=== PATIENT | female | born 1950 | race Caucasian/White ===

== ENCOUNTER 2019-01-04 22:51 | Inpatient (IN) | payer MEDICARE, MEDICAID ==
[2019-01-03 23:03] VITALS: BP 178/78
[~2019-01-04] VITALS: Ht 160 cm; Wt 65.8 kg
[~2019-01-04 22:51] MED LIST: FOLI1TAB16 PO; FURO20TA4 PO; HYDR25TA4 PO; LORA-259 PO; NICO-677 TD; OSEL75CA PO; POTA10CA43 PO; THIA100T13 PO
--- NOTE | 2019-01-04 23:03 | NUR ---
AIR POLLUTION INSPECTOR ADMISSION NOTES RECEIVED PATIENT AD DIRECT ADMIT FROM NAZLINI. PATIENT IS ALERT AND ORIENTED X3, VERBALLY RESPONSIVE, ABLE TO MAKE NEEDS KNOWN. BREATHING EVEN AND UNLABORED. NO SOB NOTED. TOLERATING ROOM AIR. WITH COMPLAINTS OF PAIN ON LEFT HIP. WILL GIVE PRN PAIN MEDICATION WHEN AVAILABLE. SKIN DRY AND WARM TO TOUCH. AFEBRILE. PATIENT REFUSED TO TURNED TO RIGHT SIDE FOR SKIN ASSESSMENT OF BACK/BUTTOCKS/SACRUM DUE TO PAIN. ALSO UNABLE TO FULLY ASSESS [place] AREA DUE TO PATIENT NOT BEING ABLE TO SPREAD LEGS DUE TO PAIN. PATIENT HAS MARTIN CATH- INTACT AND DRAINING DARK ORANGE URINE - DR. LOPEZ AWARE WITH NO ORDERS. IV ON RIGHT FA AND LEFT FA INTACT AND PATENT. ALL OTHER NEEDS ATTENDED TO. ORIENTED TO THE USE OF UNIT AMENITIES. SAFETY MEASURES IN PLACE. CALL LIGHT WITHIN REACH. WILL CONTINUE TO MONITOR. .
[2019-01-04] MEDS ORDERED: ACETAMINOPHEN 650 MG/SUPP.RECT RC PRN (23:30)
[2019-01-04] MEDS ORDERED: ENALAPRILAT DIHYD. (2.5MG/ML) 1.25 MG/ML VIAL IV PRN (23:30)
[2019-01-04] MEDS ORDERED: Potassium Chloride 20 MEQ in IV D5/0.45 NACL 1,000 ML IV PRN (23:30)
[2019-01-04] MEDS ORDERED: HYDROMORPHONE INJ 2 MG/ML DISP.SYRIN IV PRN (23:30)
[2019-01-04] MEDS ORDERED: ONDANSETRON HCL/PF 4 MG/2 ML VIAL IVP PRN (23:30)
[2019-01-05] VITALS (7 sets, daily range): BP systolic 140–189; BP diastolic 67–98
--- NOTE | 2019-01-05 00:49 | NUR ---
VOICER NOTES DR. LOPEZ IN UNIT, SAW PATIENT WITH ORDERS TO GIVE ANOTHER DILAUDID 1MG IV NOW AND TO CHANGE DOSE OF PRN DILAUDID 1MG IV TO DILAUDID 2MG IV Q3H. ORDERS NOTED AND CARRIED OUT. WILL CONTINUE TO MONITOR.
[2019-01-05] MEDS ORDERED: HYDROMORPHONE 1 MG/1 ML DISP.SYRIN IV PRN (00:50)
[2019-01-05] MEDS ORDERED: ENALAPRILAT INJ (1.25 MG/ML) 1.25 MG/ML VIAL IV PRN (01:45)
--- NOTE | 2019-01-05 01:49 | NUR ---
PASSENGER AGENT NOTES PATIENT'S CURRENT BP IS 177/79 WITH HR OF 80. PATIENT HAS ORDER FOR VASOTEC 2.5MG FOR SBP >150. PER CARDIAC MEDS PROTOCOL, IT IS OK TO GIVE THIS MEDICATION IF PATIENT'S WAS PREVIOUSLY ON IT. INFORMED DR. LOPEZ REGARDING THE CARDIAC PROTOCOL. PER DR. LOPEZ, OK TO GIVE MEDICATION. CHARGE NURSE MADE AWARE. WILL CONTINUE TO MONITOR.
[2019-01-05] MEDS ORDERED: IV PREMIX D5 1/2NS + KCL 1,000 ML IV ONE (02:26)
[2019-01-05] MEDS: LORAZEPAM INJ 2 MG/ML VIAL IV PRN ×2 (03:08→10:13)
--- NOTE | 2019-01-05 03:58 | NUR ---
PRIVACY OFFICER NOTES INFORMED DR. LOPEZ THAT PATIENT'S BP IS 189/93 AND HR IS 105 DESPITE ATIVAN, DILAUDID, AND VASOTEC. PER DR. LOPEZ, STAT DOSE OF DILAUDID 2MG IV NOW AND NITROPASTE 1MG TO CHEST WALL Q6H PRN FOR SBP ABOVE 160. ORDERS NOTED AND CARRIED OUT.
[2019-01-05] MEDS: HYDROMORPHONE INJ 2 MG/ML DISP.SYRIN IV PRN ×3 (04:27→17:09)
[2019-01-05] MEDS ORDERED: NITROGLYCERIN PACKET 1 GM PACKET TOP PRN (04:40)
[2019-01-05 06:32] LABS: BASOPHILS % (AUTO) 0.3 % (0.0-2.0); EOSINOPHILS % (AUTO) 0.2 % (0.0-6.0); HEMATOCRIT 26 % (33-45); HEMOGLOBIN 8.3 g/dL (11.5-14.8); LYMPHOCYTES # (AUTO) 0.9 /CMM (0.8-4.8); LYMPHOCYTES % (AUTO) 8.9 % (20.0-44.0); MEAN CORPUSCULAR HGB CONC 32 g/dl (31.0-36.0); MEAN CORPUSCULAR VOLUME 79 fL (82-100); MONOCYTES # (AUTO) 0.6 /CMM (0.1-1.30); MONOCYTES % (AUTO) 5.5 % (2.0-12.0); NEUTROPHILS # (AUTO) 8.5 /CMM (1.8-8.9); NEUTROPHILS % (AUTO) 85.1 % (43.0-81.0); PLATELET COUNT (AUTO) 198 /CMM (150-450)
--- NOTE | 2019-01-05 06:35 | NUR ---
BORING MILL OPERATOR FOR METAL NOTES INFORMED DR. LOPEZ THAT PATIENT'S BLOOD PRESSURE IS 171/98 WITH HR 103 DESPITE NITRO OINTMENT GIVEN. DR. LOPEZ GAVE THE FOLLOWING ORDERS: CLONIDINE PATCH 0.1MG TOPICALLY Q7DAYS. ORDER NOTED AND CARRIED OUT. Addendum: 01/05/19 at 0637 by ADELA PALAFOX RN WILL CONTINUE TO MONITOR.
[2019-01-05] MEDS: CLONIDINE HCL 0.1MG/24H PTWK 1 EA PATCH TD SCH (06:43)
--- NOTE | 2019-01-05 06:51 | NUR ---
HOME ENERGY INSPECTOR CLOSING NOTES PATIENT RESTING IN BED. STILL IN PAIN DESPITE PAIN MEDICATIONS. DR. LOPEZ AWARE. CONTINUE CURRENT PRN PAIN MEDICATION. BREATHING EVEN AND UNLABORED. NO SOB NOTED. TOLERATING ROOM AIR. PATIENT WILL HAVE 02SAT BETWEEN 89-91% ON ROOM AIR, BUT REFUSES TO HAVE OXYGEN ON (PATIENT HAS HISTORY OF COPD). IV INTACT AND PATENT WITH D5 1/2 NS WITH 20 MEQ KCL RUNNING AT 70ML/HR. SKIN DRY AND WARM TO TOUCH. AFEBRILE. MARTIN CATH INTACT AND DRAINING DARK ORANGE/ BLOOD TINGED URINE. DR. LOPEZ AWARE. ALL OTHER NEEDS ATTENDED TO. SAFETY MEASURES IN PLACE. CALL LIGHT WITHIN REACH. WILL ENDORSE TO ONCOMING NURSE FOR ELIZABETH.
[2019-01-05 06:52] LABS: ALANINE AMINOTRANSFERASE 16 U/L (12-78); ALBUMIN 3.3 g/dL (3.4-5.0); ALKALINE PHOSPHATASE 124 U/L (46-116); ASPARTATE AMINOTRANSFERASE 21 U/L (15-37); B-TYPE NATRIURETIC PEPTIDE 17360 PG/ML (0-125); BILIRUBIN,TOTAL 0.7 mg/dL (0.2-1.0); CALCIUM, SERUM 8.7 mg/dL (8.5-10.1); CARBON DIOXIDE 24 mmol/L (21-32); CHLORIDE 106 mmol/L (98-107); CREATININE 1.1 mg/dL (0.6-1.3); GLUCOSE 98 mg/dL (74-106); MAGNESIUM 1.8 mg/dL (1.8-2.4); PHOSPHORUS 3.1 mg/dL (2.5-4.9); POTASSIUM 4.3 mmol/L (3.5-5.1); SODIUM SERUM 143 mmol/L (136-145); TOTAL PROTEIN, SERUM 7.4 g/dL (6.4-8.2); UREA NITROGEN, BLOOD 15 mg/dL (7-18)
[2019-01-05 06:57] LABS: CHOLESTEROL 133 mg/dL (<200); HDL CHOLESTEROL 62 mg/dL (40-60); LDL 67 mg/dL (0-99); THYROID STIMULATING HORMONE 2.169 uIU/mL (0.358-3.74); TRIGLYCERIDES 54 mg/dL (30-150)
--- NOTE | 2019-01-05 07:00 | NUR ---
PHONE COUNSELOR NOTES RECEIVED TROPONIN LEVEL OF 2.330. PAGED DR. LOPEZ AT [phone]. STILL WAITING RESPONSE. WILL CONTINUE TO MONITOR.
[2019-01-05 07:05] LABS: IRON, SERUM 41 ug/dl (50-175); TOTAL IRON BINDING CAPACITY 400 ug/dl (250-450)
[2019-01-05 07:15] LABS: APPEARANCE,URINE CLOUDY (CLEAR); BILIRUBIN,URINE NEGATIVE (NEGATIVE); BLOOD, URINE 3+ Ery/uL (NEGATIVE); COLOR,URINE YELLOW (YELLOW); KETONES,URINE NEGATIVE (NEGATIVE); LEUKOCYTE ESTERASE ,URINE NEGATIVE (NEGATIVE); NITRITE, URINE NEGATIVE (NEGATIVE); PH,URINE 7.5 (5.0-8.0); PROTEIN,URINE 1+ mg/dl (NEGATIVE); UGLUCOSE NEGATIVE (NEGATIVE); UROBILINOGEN,URINE 0.2 EU/dL (0.2)
[2019-01-05 07:19] LABS: BACTERIA,URINE None seen /HPF (None Seen); RBC,URINE TOO NUMEROUS TO COUN /HPF (0-2); SQUAMOUS EPITHELIAL CELL,UR Few /HPF (None Seen); WBC,URINE 0-2 /HPF (0-3)
--- NOTE | 2019-01-05 07:30 | NUR ---
OPENING NOTE. BEDSIDE REPORT RECIEVED FROM PM SHIFT RN. PATIENT SEEN IN BED TAKING GOWN OFF, GRIMACING AND REPEATEDLY STATING, "I DONT FEEL GOOD." PATIENT IS A/O PERSON PLACE BUT REMINDED OF SPECIFIC HOSPITAL AND WHAT HAPPENED THAT BROUGHT HER HERE. BED DOWN LOCKED. CALL LIGHT IN REACH. IV INFUSING TO RIGHT FA AT 70 MLS PER HOUR NO S/S OF INFILTRATION. BED ALARM ACTIVE.
--- NOTE | 2019-01-05 07:39 | NUR ---
PSYCHOLOGIST COUNSELING NOTES ENDORSE TO DAY NURSE REGARDING TROPONIN LEVEL.
[2019-01-05] MEDS ORDERED: HEPARIN INFUSION/D5W 500 ML IV PRN (08:00)
--- NOTE | 2019-01-05 08:20 | NUR ---
BEAN SPROUT LABORER NOTES SPOKE TO DMITIRY WELDING LEAD BURNER REGARDING PATIENTS LABS STATES HE REVIEWED LABS. INFORMED HIM THAT JOHN WELDING LEAD BURNER ORDERED HEPARIN DRIP STATES TO HOLD HEPATIN DRIP UNTIL PATIENT IS SEEN BY DR. VILLALOBOS CARDIOLOGY. ORDERS OBTAINED FOR REPEAT TROP AND PTT. ORDERS NOTED AND CARRIED OUT. WILL CONTINUE TO MONITOR PATIENT CLOSELY.
[2019-01-05] MEDS: PANTOPRAZOLE 40 MG VIAL IV SCH (08:31)
[2019-01-05] MEDS: NICOTINE PATCH (14MG) 14 MG PATCH.TD24 TD SCH (08:32)
[2019-01-05] MEDS ORDERED: FOLI1TAB16 PO (08:56)
[2019-01-05] MEDS ORDERED: THIA100T74 PO (08:56)
[2019-01-05] MEDS ORDERED: LORA-259 PO (08:56)
--- NOTE | 2019-01-05 09:50 | NUR ---
NO VTE ORDERS. CINDI IN TO SEE PATIENT. AT THE BEDSIDE AND INFORMED THAT HEPARIN DRIP NOT ORDERED BUT PATIENT IS HIGH RIKS FOR VTE. STATE HE WILL REVIEW CHART AND ORDER SOMETHING IF INDICATED.
[2019-01-05] MEDS: FUROSEMIDE 40 MG/4 ML VIAL IV SCH ×2 (09:53→13:00)
[2019-01-05] MEDS: ASPIRIN 325 MG TABLET PO SCH (09:53)
[2019-01-05] MEDS ORDERED: POTASSIUM CHLORIDE 20 MEQ TAB.PRT.SR PO SCH (10:00)
--- NOTE | 2019-01-05 11:47 | NUR ---
attempted to consent patient, pt not alert nor oriented. unable to sign consent.. waiting to locate .
--- NOTE | 2019-01-05 12:00 | NUR ---
CHILDREN'S ENTERTAINER NOTES PATIENT WAS SEEN BY MANUFACTURING MAINTENANCE MANAGER JOSEE UNABLE TO OBTAIN CONSENT AND MANUFACTURING MAINTENANCE MANAGER STATES SHE POSSIBLE WONT BE ABLE TO PERFORM TEST DUE TO PATIENT NOT BEING ABLE TO FOLLOW COMMENDS. STATES HE WILL CONTACT DR. VILLALOBOS TO GET FURTHER ORDERS.
[2019-01-05] MEDS: METOPROLOL TARTRATE 50 MG TABLET PO SCH ×2 (13:16→17:05)
--- NOTE | 2019-01-05 14:22 | NUR ---
PATIENT IS SEMI LETHARGIC SOMEWHAT FORGETFUL NOT RESPONDING APPROPRIATELY TO QUESTIONS REGARDING HOW SHE GOT TO HOSPITAL. DOES NOT VERBALIZE COMPLETE UNDERSTANDING. REINFORCEMENT NEEDED.
--- NOTE | 2019-01-05 16:00 | NUR ---
CIVIL CELEBRANT NOTES SPOKE TO RADIOLOGY STATES DR. VILLALOBOS WAS MADE AWARE WILL FOLLOW UP TOMORROW.
--- NOTE | 2019-01-05 16:00 | NUR ---
BAKERY CHEF NOTES MULTIPLE ATTEMPTS MADE TO CONTACT PATIENTS FOR CONSENT. PHONE ANSWERED BY SOMEONE ELSE STATING SHE HAS BEEN GETTING PHONE CALLS FOR KRISTI BEFORE BUT SHE HAS HAD THIS PHONE NUMBER FOR MANY YEARS AND ITS THE WRONG PHONE NUMBER.
--- NOTE | 2019-01-05 19:05 | NUR ---
BEDSIDE REPORT GIVEN TO NOC SHIFT RN QUESTIONS CONCERNS ADDRESSED. PATIENT RESTING IN BED IN NO APPARENT DISTRESS IN A SEMIFOWLERS POSITION WITH EYES CLOSED. IN NO APPARENT DISTRESS. PATIENT IS SR ON TELEMETRY AT 79. BED DOWN AND LOCKED CALL LIGHT IN REACH.
--- NOTE | 2019-01-05 19:30 | NUR ---
RN NOTES RECEIVED PT. SLEEPING BUT AROUSABLE, SR WITH PVC ON TELE MONITOR HR-70, NOT IN DISTRESS, F/C DRAINING ORANGE COLORED URINE, SIDERAILSUPX2, CONTINUE TO MONITOR
[2019-01-06] MEDS: METOPROLOL TARTRATE 50 MG TABLET PO SCH ×4 (00:42→17:54)
[2019-01-06 04:33] VITALS: BP 119/81
--- NOTE | 2019-01-06 05:00 | NUR ---
RN NOTES PT. REFUSED TO HAVE HER V/S CHECKED
--- NOTE | 2019-01-06 06:00 | NUR ---
RN NOTES TALKED TO THE PT. BECAUSE PT. IS REFUSING TO HAVE HER V/S CHECKED AND SHE REFUSED TO TAKE HER METOPROLOL MEDICATION WELL,, PT. IS COMBATIVE
--- NOTE | 2019-01-06 06:33 | NUR ---
RN NOTES SLEEPING BUT AROUSABLE, MORNING CARE RENDERED, [id number], PT. NEEDS ATTENDED
[2019-01-06 06:46] LABS: ALANINE AMINOTRANSFERASE 21 U/L (12-78); ALBUMIN 3.2 g/dL (3.4-5.0); ALKALINE PHOSPHATASE 115 U/L (46-116); ASPARTATE AMINOTRANSFERASE 23 U/L (15-37); BILIRUBIN,TOTAL 0.9 mg/dL (0.2-1.0); CARBON DIOXIDE 27 mmol/L (21-32); CHLORIDE 103 mmol/L (98-107); CREATININE 1.1 mg/dL (0.6-1.3); GLUCOSE 93 mg/dL (74-106); MAGNESIUM 1.8 mg/dL (1.8-2.4); PHOSPHORUS 4.4 mg/dL (2.5-4.9); SODIUM SERUM 142 mmol/L (136-145); TOTAL PROTEIN, SERUM 7.6 g/dL (6.4-8.2); UREA NITROGEN, BLOOD 20 mg/dL (7-18)
[2019-01-06 08:00] VITALS: BP 153/73
[2019-01-06 08:34] LABS: BASOPHILS % (AUTO) 0.4 % (0.0-2.0); EOSINOPHILS % (AUTO) 0.3 % (0.0-6.0); HEMATOCRIT 29 % (33-45); LYMPHOCYTES # (AUTO) 0.9 /CMM (0.8-4.8); LYMPHOCYTES % (AUTO) 7.5 % (20.0-44.0); MEAN CORPUSCULAR HGB CONC 31 g/dl (31.0-36.0); MEAN CORPUSCULAR VOLUME 78 fL (82-100); MONOCYTES # (AUTO) 0.9 /CMM (0.1-1.30); MONOCYTES % (AUTO) 7.2 % (2.0-12.0); NEUTROPHILS # (AUTO) 10.5 /CMM (1.8-8.9); NEUTROPHILS % (AUTO) 84.6 % (43.0-81.0); PLATELET COUNT (AUTO) 179 /CMM (150-450); RED BLOOD CELL COUNT(AUTO) 3.71 MIL/uL (4.0-5.2); WHITE BLOOD COUNT (AUTO) 12.4 K/uL (4.3-11.0)
--- NOTE | 2019-01-06 10:00 | NUR ---
BUCKS TRACTIONS BUCKS TRACTION NEVER INITIATED SINCE ADMISSION. Addendum: 01/06/19 at 1606 by OSWALDO DONNELLY RN Amended: Links added.
[2019-01-06] MEDS: NICOTINE PATCH (14MG) 14 MG PATCH.TD24 TD SCH (10:06)
[2019-01-06] MEDS: ASPIRIN 325 MG TABLET PO SCH (10:06)
[2019-01-06] MEDS: PANTOPRAZOLE 40 MG VIAL IV SCH (10:07)
[2019-01-06] MEDS: FUROSEMIDE 40 MG/4 ML VIAL IV SCH ×3 (10:22→17:49)
[2019-01-06] MEDS: HYDROMORPHONE INJ 2 MG/ML DISP.SYRIN IV PRN ×4 (12:26→21:46)
--- NOTE | 2019-01-06 13:50 | NUR ---
REGAURDING CTA JAYCEE FROM RADIOLOGY CALLS AND STATE THAT CTA WONT BE ABLE TO PERFORMED IN PATIENTS CURRENT CONDITION SHE DOES NOT EXHIBIT THE ABILITY TO FOLLOW DIRECTIONS. TEST WOUND NOT BE ACCURATE. DR. PETERS NOTIFIED AND STATES THE TEST MAY BE CANCELLED IF UNABLE TO PERFORMED.
[2019-01-06] MEDS: SOD FERRIC GLUC 125 MG in IV NS 0.9% 100 ML IV SCH (14:44)
--- NOTE | 2019-01-06 14:47 | NUR ---
PT UNABLE TO FOLLOW INSTRUCTION. SPOKE WITH DR. FRANKEL (RADIOLOGIST) REGARDING PATIENT STATUS.
[2019-01-06] MEDS: ALBUTEROL HALF STRENGTH 1.25 MG/3 ML VIAL.NEB NEB SCH ×4 (15:30→22:41)
[2019-01-06] MEDS: methylPREDNISolone SOD SUCC 125 MG/2ML VIAL IV SCH ×2 (15:35→17:49)
[2019-01-06 15:44] LABS: ABG BASE EXCESS 1.5 mmol/L; ABG OXYGEN SATURATION 89.2 % (92.0-98.5); ABG PCO2 33.1 mmHg (35.0-45.0); ABG PO2 60.6 mmHg (75.0-100.0); AaDO2 49.5 mmHg; COHb 0.8 % (0.5-1.5); MetHb 0.7 % (0.0-1.5); O2Hb 87.9 % (94.0-97.0); SITE, ABG Right Radial; VENT MODE, BG room air
--- NOTE | 2019-01-06 15:46 | NUR ---
MS RN NOTES ABG RESULTS OBTAINED FROM RT REPORTED TO DR. HALEY ORDERS RECEIVED TO PLACE PATIENT ON 2 LITERS OF OXYGEN. NOTED AND CARRIED OUT.
[2019-01-06 16:00] VITALS: BP 143/62
[2019-01-06] MEDS: IPRATROPIUM NEB FS 0.5 MG/2.5 ML AMPUL.NEB NEB SCH ×3 (16:37→22:41)
--- NOTE | 2019-01-06 16:38 | NUR ---
RT NOTE PT IS A NEW START; WAS NOT NOTIFIED OF BREATHING TX ORDERED.
[2019-01-06] MEDS ORDERED: FUROSEMIDE 40 MG/4 ML VIAL IV SCH (18:00)
[2019-01-06 18:16] LABS: OCCULT BLOOD STOOL POSITIVE (NEGATIVE)
--- NOTE | 2019-01-06 19:00 | NUR ---
ELAINE MS NOTES RECEIVED PATIENT IN BED, AWAKE ALERT AND ORIENTED X2, VERBALLY RESPONSIVE, ON 2 L VIA NC RESPIRATIONS EVEN AND UNLABORED WITH EQUAL RISE AND FALL OF CHEST, MARTIN CATHETER INTACT AND DRAINING URINE YELLOW, IV SITE TO LEFT FA #18 G INTACT AND PATENT, NO REDNESS, NO INFILTRATION PRESENT, SAFETY PRECAUTIONS IN PLACE,LOW BED AND LOCKED ,CALL LIGHT KEPT WITHIN REACH, BED ALARM IN PLACE, ORIENTED TO STAFF, ALL NEEDS ATTENDED , REPOSITIONING AND FLUIDS OFFERED, ALL NEEDS ATTENDED AT THIS TIME, WILL CONTINUE TO MONITOR AND ADDRESS NEEDS. Addendum: 01/07/19 at 0622 by LOGAN WYNNE RN ELAINE MS OPENING NOTES
[2019-01-06 20:00] VITALS: BP 110/60
--- NOTE | 2019-01-06 21:46 | NUR ---
RN MS NOTES PATIENT COMPLAINT OF PAIN TO LEFT HIP 07/13 REQUESTING FOR DILAUDID. VS WNL,110/60,68,16,98% 2 L, DILAUDID PRN GIVEN ORDERED WILL CONTINUE TO MONITOR FOR EFFECTIVENESS.
--- NOTE | 2019-01-06 22:00 | NUR ---
RN MS NOTES UPON ASSESSMENT NOTED LEFT MEDIAL HEEL WITH REDNESS, BLANCHABLE WOUND PHOTO TAKEN WILL PLACE WOUND CARE CONSULT SITE PROTECTED WITH MEPILEX AND OFFLOADED, NOTED PATIENT CROSS RIGHT LEG AND PLACES ON LEFT LOWER LEG AND HEEL
--- NOTE | 2019-01-07 00:17 | NUR ---
RN MS NOTES LOPRESSOR HELD DUE TO DECREASE BP 105/56 HR60
[2019-01-07] MEDS: HYDROMORPHONE INJ 2 MG/ML DISP.SYRIN IV PRN ×4 (02:14→23:06)
--- NOTE | 2019-01-07 02:14 | NUR ---
RN MS NOTES PATIENT COMPLAINT OF PAIN 10/10 TO LEFT HIP REQUESTING FOR PAIN MEDICATION DILAUDID . VS WNL 116/55,58,18,95% 2 L. PRN DILAUDID GIVEN ORDERED FOR PAIN WILL CONTINUE TO MONITOR
[2019-01-07] MEDS: IPRATROPIUM NEB FS 0.5 MG/2.5 ML AMPUL.NEB NEB SCH ×6 (03:22→23:14)
[2019-01-07] MEDS: ALBUTEROL HALF STRENGTH 1.25 MG/3 ML VIAL.NEB NEB SCH ×6 (03:22→23:14)
[2019-01-07] MEDS: LORAZEPAM INJ 2 MG/ML VIAL IV PRN ×2 (05:11→21:42)
--- NOTE | 2019-01-07 05:11 | NUR ---
RN MS NOTES PATIENT STATES SHE "FEELS ANXIOUS" OFFERED ATIVAN PATIENT AGREED STATES" SHE HOPES TO GET REST" ATIVAN PRN ORDERED GIVEN 0.25ML REST WASTED AND VERIFIED WITH ANOTHER RN , DISPOSED INTO WASTE CONTAINER.
[2019-01-07] MEDS: METOPROLOL TARTRATE 50 MG TABLET PO SCH ×5 (05:58→23:06)
--- NOTE | 2019-01-07 06:02 | NUR ---
RN MS NOTE PATIENT REFUSED LOPRESSOR EXPLAINED RISKS AND BENEFITS, REFUSED
--- NOTE | 2019-01-07 06:16 | NUR ---
RN MS NOTES PATIENT COMPLAINING OF PAIN 10/10 TO LEFT HIP REQUESTING FOR PAIN MEDICATION VS WNL 112/58,70,18,97%2L DILAUDID PRN ORDERED GIVEN AND REPOSITIONED , PROVIDED ICED WATER, WILL CONTINUE TO MONITOR FOR EFFECTIVENESS
--- NOTE | 2019-01-07 06:31 | NUR ---
RN MS CLOSING NOTES PATIENT IN BED, AWAKE ALERT AND ORIENTED X2-3, VERBALLY RESPONSIVE, ON 2 L VIA NC RESPIRATIONS EVEN AND UNLABORED WITH EQUAL RISE AND FALL OF CHEST, MARTIN CATHETER INTACT AND DRAINING URINE YELLOW WITH SEDIMENTS, IV SITE TO LEFT FA #18 G INTACT AND PATENT, NO REDNESS, NO INFILTRATION PRESENT, SAFETY PRECAUTIONS IN PLACE,LOW BED AND LOCKED ,CALL LIGHT KEPT WITHIN REACH, BED ALARM IN PLACE, REPOSITIONED, OFFLOADED HEELS, PROVIDED BED BATH AND PERINEAL CARE SKIN TO SACRAL REMAINS CLEAN AND INTACT, NO REDNESS, ALL NEEDS ATTENDED, FLUIDS OFFERED , ALL NEEDS ATTENDED AT THIS TIME, WILL CONTINUE TO MONITOR AND ADDRESS NEEDS AND ENDORSE TO NEXT SHIFT.
[2019-01-07 07:54] LABS: BASOPHILS % (AUTO) 0.3 % (0.0-2.0); EOSINOPHILS % (AUTO) 0.7 % (0.0-6.0); HEMATOCRIT 32 % (33-45); HEMOGLOBIN 9.6 g/dL (11.5-14.8); LYMPHOCYTES # (AUTO) 0.8 /CMM (0.8-4.8); LYMPHOCYTES % (AUTO) 6.2 % (20.0-44.0); MEAN CORPUSCULAR HGB CONC 30 g/dl (31.0-36.0); MEAN CORPUSCULAR VOLUME 80 fL (82-100); MONOCYTES # (AUTO) 0.9 /CMM (0.1-1.30); MONOCYTES % (AUTO) 6.4 % (2.0-12.0); NEUTROPHILS # (AUTO) 11.7 /CMM (1.8-8.9); NEUTROPHILS % (AUTO) 86.4 % (43.0-81.0); RED BLOOD CELL COUNT(AUTO) 3.96 MIL/uL (4.0-5.2); WHITE BLOOD COUNT (AUTO) 13.5 K/uL (4.3-11.0)
[2019-01-07 08:00] VITALS: BP 110/63
[2019-01-07 08:01] LABS: PLATELET COUNT (AUTO) 45 /CMM (150-450)
[2019-01-07 08:51] LABS: ALANINE AMINOTRANSFERASE 15 U/L (12-78); ALKALINE PHOSPHATASE 108 U/L (46-116); ASPARTATE AMINOTRANSFERASE 23 U/L (15-37); BILIRUBIN,TOTAL 0.3 mg/dL (0.2-1.0); CALCIUM, SERUM 8.6 mg/dL (8.5-10.1); CARBON DIOXIDE 23 mmol/L (21-32); CHLORIDE 99 mmol/L (98-107); CREATININE 1.7 mg/dL (0.6-1.3); GLUCOSE 128 mg/dL (74-106); PHOSPHORUS 5.6 mg/dL (2.5-4.9); POTASSIUM 3.8 mmol/L (3.5-5.1); SODIUM SERUM 137 mmol/L (136-145); TOTAL PROTEIN, SERUM 7.4 g/dL (6.4-8.2); UREA NITROGEN, BLOOD 37 mg/dL (7-18)
[2019-01-07 09:13] LABS: LYMPHOCYTES % (MANUAL) 5 % (16-48); MONOCYTES % (MANUAL) 1 % (0-11.0); NEUTROPHILS % (MANUAL) 94 (42-76)
[2019-01-07] MEDS: methylPREDNISolone SOD SUCC 125 MG/2ML VIAL IV SCH ×2 (09:54→18:46)
[2019-01-07] MEDS: ASPIRIN 325 MG TABLET PO SCH (09:54)
[2019-01-07] MEDS: NICOTINE PATCH (14MG) 14 MG PATCH.TD24 TD SCH (09:54)
[2019-01-07] MEDS: PANTOPRAZOLE 40 MG VIAL IV SCH (09:54)
[2019-01-07 11:10] LABS: BASOPHILS % (AUTO) 0.4 % (0.0-2.0); EOSINOPHILS % (AUTO) 0.1 % (0.0-6.0); HEMATOCRIT 31 % (33-45); HEMOGLOBIN 9.6 g/dL (11.5-14.8); LYMPHOCYTES # (AUTO) 0.9 /CMM (0.8-4.8); LYMPHOCYTES % (AUTO) 6.6 % (20.0-44.0); MEAN CORPUSCULAR HGB CONC 31 g/dl (31.0-36.0); MEAN CORPUSCULAR VOLUME 79 fL (82-100); MONOCYTES # (AUTO) 1.3 /CMM (0.1-1.30); MONOCYTES % (AUTO) 9.3 % (2.0-12.0); NEUTROPHILS # (AUTO) 11.8 /CMM (1.8-8.9); NEUTROPHILS % (AUTO) 83.6 % (43.0-81.0); PLATELET COUNT (AUTO) 191 /CMM (150-450); RED BLOOD CELL COUNT(AUTO) 3.89 MIL/uL (4.0-5.2); WHITE BLOOD COUNT (AUTO) 14.1 K/uL (4.3-11.0)
[2019-01-07] MEDS: SOD FERRIC GLUC 125 MG in IV NS 0.9% 100 ML IV SCH (14:36)
--- NOTE | 2019-01-07 15:30 | NUR ---
NEW IV START IN LT. WRIST WITH MULTIPLE ATTEMPTS.OR CONSENTS SIGNED.OR PLANNED FOR TOMORROW.
[2019-01-07 16:00] VITALS: BP 103/50
--- NOTE | 2019-01-07 18:00 | NUR ---
MEDICATED X1 WITH DILAUDID INJECTION.
[2019-01-07 20:00] VITALS: BP 110/65
--- NOTE | 2019-01-07 21:45 | NUR ---
RN NOTES PT. IS SO ANXIOUS- ATIVAN 0.5MG IV GIVEN ORDERED, V/S STABLE
--- NOTE | 2019-01-07 23:10 | NUR ---
RN NOTES COMPLAINED OF LEFT LEG PAIN- DILAUDID 2MG IV GIVEN ORDERED, V/S STABLE
[2019-01-08] VITALS (23 sets, daily range): BP systolic 56–137; BP diastolic 34–92
[2019-01-08] MEDS ORDERED: MEROPENEM 1 G in IV NS 0.9% 100 ML IV SCH ×2
[2019-01-08 01:01] LABS: OCCULT BLOOD STOOL POSITIVE (NEGATIVE)
[2019-01-08] MEDS: IPRATROPIUM NEB FS 0.5 MG/2.5 ML AMPUL.NEB NEB SCH ×5 (03:26→23:27)
[2019-01-08] MEDS: ALBUTEROL HALF STRENGTH 1.25 MG/3 ML VIAL.NEB NEB SCH ×5 (03:26→23:27)
[2019-01-08] MEDS: METOPROLOL TARTRATE 50 MG TABLET PO SCH ×3 (06:00→18:00)
[2019-01-08 06:36] LABS: EOSINOPHILS % (AUTO) 0.1 % (0.0-6.0); HEMATOCRIT 28 % (33-45); HEMOGLOBIN 8.7 g/dL (11.5-14.8); LYMPHOCYTES # (AUTO) 0.4 /CMM (0.8-4.8); LYMPHOCYTES % (AUTO) 3.3 % (20.0-44.0); MEAN CORPUSCULAR HGB CONC 31 g/dl (31.0-36.0); MEAN CORPUSCULAR VOLUME 79 fL (82-100); MONOCYTES # (AUTO) 0.3 /CMM (0.1-1.30); MONOCYTES % (AUTO) 2.2 % (2.0-12.0); NEUTROPHILS # (AUTO) 12.5 /CMM (1.8-8.9); NEUTROPHILS % (AUTO) 94.4 % (43.0-81.0); PLATELET COUNT (AUTO) 127 /CMM (150-450); RED BLOOD CELL COUNT(AUTO) 3.52 MIL/uL (4.0-5.2); WHITE BLOOD COUNT (AUTO) 13.2 K/uL (4.3-11.0)
[2019-01-08 06:41] LABS: CARBON DIOXIDE 24 mmol/L (21-32); CHLORIDE 97 mmol/L (98-107); CREATININE 1.5 mg/dL (0.6-1.3); GLUCOSE 110 mg/dL (74-106); POTASSIUM 3.9 mmol/L (3.5-5.1); SODIUM SERUM 133 mmol/L (136-145); UREA NITROGEN, BLOOD 47 mg/dL (7-18)
--- NOTE | 2019-01-08 06:43 | NUR ---
RN NOTES AWAKE, DENIES PAIN AT THIS TIME, NO SOB, F/C IN P[LACE, MORNING CARE RENDERED, CALL LIGHT WITHIN REACH, SIDERAILSUPX2, PT. NEEDS ATTENDED
--- NOTE | 2019-01-08 07:30 | NUR ---
RN OPENING NOTES PT AWAKE AND RESTING IN BED. NO COMPLAINTS OF PAIN, SOB OR DISTRESS AT THIS TIME. PT AWAITING LEFT HIP SX TODAY. PT HAS A LEFT WRIST #22 INTACT AND PATENT. WILL COMPLETE SX CHECKLIST PRIOR TO PATIENTS HIP SX, CONSENTS SIGNED AND IN CHART. SAFETY PRECAUTIONS IN PLACE, BED IN LOWEST LOCKED POSITION, X2 SIDE RAILS UP AND CALL LIGHT WITHIN REACH. WILL CONTINUE TO MONITOR.
[2019-01-08] MEDS: NICOTINE PATCH (14MG) 14 MG PATCH.TD24 TD SCH (08:56)
[2019-01-08] MEDS: PANTOPRAZOLE 40 MG VIAL IV SCH (08:57)
[2019-01-08] MEDS: methylPREDNISolone SOD SUCC 125 MG/2ML VIAL IV SCH ×2 (08:58→18:27)
[2019-01-08] MEDS: ASPIRIN 325 MG TABLET PO SCH (08:58)
--- NOTE | 2019-01-08 10:58 | NUR ---
RN NOTES PT LEFT UNIT FOR LEFT HIP SURGERY.
[2019-01-08] MEDS ORDERED: BUPIVACAINE MPF 0.5% W/EPI INJ 30 ML VIAL ONE (11:41)
[2019-01-08] MEDS ORDERED: BACITRACIN 50000 UNITS/VIAL ONE (11:41)
[2019-01-08] MEDS ORDERED: MIDAZOLAM HCL 2 MG/2ML VIAL ONE (11:52)
[2019-01-08] MEDS ORDERED: FENTANYL PF 100MCG/2ML AMPUL ONE ×2 (11:53→14:38)
[2019-01-08] MEDS ORDERED: FENTANYL PF 250MCG/5ML AMPUL ONE (11:53)
[2019-01-08] MEDS ORDERED: ROCURONIUM BROMIDE 50 MG/5 ML ONE (11:54)
[2019-01-08] MEDS ORDERED: CLINDAMYCIN 900 MG/6 ML VIAL ONE (12:20)
[2019-01-08] MEDS ORDERED: hydrALAZINE HCL IV 20 MG VIAL ONE (14:43)
[2019-01-08 15:06] LABS: HEMATOCRIT 30 % (33-45); HEMOGLOBIN 9.1 g/dL (11.5-14.8); LYMPHOCYTES # (AUTO) 1.2 /CMM (0.8-4.8); MEAN CORPUSCULAR HGB CONC 31 g/dl (31.0-36.0); MEAN CORPUSCULAR VOLUME 79 fL (82-100); MONOCYTES # (AUTO) 0.5 /CMM (0.1-1.30); MONOCYTES % (AUTO) 3.1 % (2.0-12.0); NEUTROPHILS # (AUTO) 14.7 /CMM (1.8-8.9); NEUTROPHILS % (AUTO) 89.9 % (43.0-81.0); RED BLOOD CELL COUNT(AUTO) 3.73 MIL/uL (4.0-5.2); WHITE BLOOD COUNT (AUTO) 16.3 K/uL (4.3-11.0)
[2019-01-08 15:12] LABS: CALCIUM, SERUM 8.1 mg/dL (8.5-10.1); CARBON DIOXIDE 26 mmol/L (21-32); CHLORIDE 101 mmol/L (98-107); CREATININE 1.5 mg/dL (0.6-1.3); GLUCOSE 158 mg/dL (74-106); SODIUM SERUM 138 mmol/L (136-145); UREA NITROGEN, BLOOD 51 mg/dL (7-18)
[2019-01-08 15:14] LABS: PLATELET COUNT (AUTO) 272 /CMM (150-450)
[2019-01-08] MEDS ORDERED: FLUMAZENIL 0.5 MG VIAL ONE (15:40)
[2019-01-08] MEDS ORDERED: NALOXONE HCL 0.4 MG/ML AMPUL ONE (15:50)
--- NOTE | 2019-01-08 16:30 | NUR ---
RN NOTES REPORT GIVEN TO ELAINE PELAYO IN ICU. PATIENT WILL BE TRANSFERRED TO ROOM 253. ALL PATIENT BELONGINGS TRANSPORTED TO ROOM 253.
--- NOTE | 2019-01-08 17:20 | NUR ---
LOBSTER CATCHER PULLED OUT FENTANYL 100MCG FROM PIXES ORDERED VERBALLY BY DR. FRANKLIN. PT CONDITION CHANGED MD STATED NO NEED TO GIVE MED, MED WAS WAISTED WITH DARIA RN, WAISTED ON PEXES W/ DARIA RN INSTEAD OF TYPING 100MCG WAISTED ,THE PEXES RECORDED ZERO MCG AND WAS UNABLE TO GO BACK AND CORRECT THE DOSE. TOTAL 100 MCG WAS WAISTED W/ DARIA RN.
[2019-01-08 18:07] LABS: ABG BASE EXCESS -6.1 mmol/L; ABG OXYGEN SATURATION 93.6 % (92.0-98.5); ABG PCO2 42.8 mmHg (35.0-45.0); ABG PH 7.289 (7.350-7.450); AaDO2 224.4 mmHg; COHb 0.8 % (0.5-1.5); MetHb 0.7 % (0.0-1.5); O2Hb 92.2 % (94.0-97.0); PEEP,BG 5 cm H2O; SITE, ABG Right Radial; VT, ABG 500 mL
--- NOTE | 2019-01-08 18:18 | NUR ---
RT ETT advanced 2cm per Dr. Olvera orders. ETT is currently secured at 23cm at the lip line. Equal Bilateral breath sounds and chest rise noted. RESIDENTIAL SUBCONTRACTOR cuff pressure noted. No respiratory distress noted. Addendum: 01/08/19 at 1827 by CARI CASTELLANO RT Amended: Links added.
[2019-01-08] MEDS: SOD FERRIC GLUC 125 MG in IV NS 0.9% 100 ML IV SCH (19:10)
[2019-01-08] MEDS: PROPOFOL 100 ML IV PRN (19:12)
[2019-01-08] MEDS ORDERED: IV D5/0.45 NACL 1,000 ML IV ONE (19:30)
[2019-01-08] MEDS ORDERED: DEXTROSE 50%-WATER 50 ML DISP.SYRIN IV PRN (19:30)
--- NOTE | 2019-01-08 19:30 | NUR ---
RN NOTE PT TRANSPORTED FROM RADIOLOGY AROUND 1730, WITH OR PERSONNEL VIA BED, PT INTUBATED, AND AMBU BAGED, SR ON FORMULATION CHEMIST, BROUGHT IN TO ICU IN RM 253, REPORT OBTAINED FROM OR NURSE AND ANESTHESIOLOGIST, PT REMAINS UNRESPONSIVE, PT MOVES EXTREMITIES OCCASIONALLY WITHOUT PURPOSE UPON PAINFUL STIMULI. PT PLACED ON [facility] VENTILATOR, OCCASIONAL GRIMACING AND GAGING. BOTH IV IN PLACE, I/C/D. MARTIN IN PLACE, NO URINE OUTPUT NOTED. MINIMAL BLEEDING NOTED ON LEFT LATERAL DRESSING. DRESSING CHANGED. PT COOL TO TOUCH. WARM BLANKETS APPLIED. HUONG WALLS NOTIFIED ABOUT PT CONDITION. VS STABLE. SAFETY MEASURES IN PLACE, CALL LIGHT WITHIN REACH. WILL ENDORSE PT TO RECEPTION MANAGER.
[2019-01-08 19:34] LABS: ABG BASE EXCESS -4.8 mmol/L; ABG OXYGEN SATURATION 97.8 % (92.0-98.5); ABG PCO2 38.5 mmHg (35.0-45.0); ABG PH 7.343 (7.350-7.450); ABG PO2 124.7 mmHg (75.0-100.0); AaDO2 188.5 mmHg; COHb 0.7 % (0.5-1.5); O2Hb 96.1 % (94.0-97.0); PEEP,BG 5 cm H2O
--- NOTE | 2019-01-08 19:37 | NUR ---
ABG DONE. NOTIFIED DR POZO WITH THE RESULT. FIO2 TITRATED TO 40%. RN NOTIFIED.
--- NOTE | 2019-01-08 19:45 | NUR ---
WATER AEROBICS INSTRUCTOR OPENING NOTES RECEIVED PATIENT FROM GITA HENRY. PATIENT OBTUNDED BUT RESPONSIVE TO PAINFUL STIMULI. INTUBATED W/ ETT 7.0/23 & TOLERATING VENT SETTINGS. NO RESPIRATORY DISTRESS NOTED. ON TELE W/ SINUS RHYTHM, HR 60S. LEFT HAND IV #22 & RIGHT FOREARM IV #22 INTACT & PATENT W/ DRESSING CDI. MARTIN CATH DRAINING YELLOW URINE. SURGUCAL DRESSING IN PLACE W/ NO SIGNS OF BLEEDING OR SWELLING AROUND SITE. NO S/S OF PAIN OR DISCOMFORT @ THIS TIME. SAFETY MEASURES IN PLACE & HOB ELEVATED FOR ASPIRATION PRECAUTIONS. WILL CONTINUE TO MONITOR CLOSELY.
--- NOTE | 2019-01-08 20:15 | NUR ---
SENIOR TABLEAU DEVELOPER NOTES PATIENT'S BP NOTED IN 60S. DR LOPEZ NOTIFIED & RECEIVED NEW ORDER TO START LEVOPHED DRIP & TITRATE PER PROTOCOL. PROPOFOL DRIP HELD.
[2019-01-08] MEDS ORDERED: NOREPINEPHRINE 4 MG/4 ML AMPUL IV ONE (20:17)
[2019-01-08] MEDS ORDERED: NOREPINEPHRINE 16 MG in IV D5W 500 ML IV PRN (20:30)
--- NOTE | 2019-01-08 21:00 | NUR ---
TOE CLOSING MACHINE TENDER NOTES PICC LINE INSERTED & LEVOPHED DRIP STARTED PER PROTOCOL. PROPOFOL DRIP RESTARTED @ 5MCG/KG/MIN.
--- NOTE | 2019-01-08 21:05 | NUR ---
RECEIVED PT INTUBATED 7.0 ETT SECURED AT 23CM AT THE LIP. PT TOLERATING VENT SETTINGS. SX'D FOR MOD AMT OF THICK PALE SECRETIONS. VENT ALARMS SET AND AUDIBLE. ETT CUFF ADVERTISING TEACHER. VENT PLUGGED INTO RED OUTLET. WILL CONTINUE TO MONITOR. Addendum: 01/08/19 at 2108 by TONEY BENTON RT Amended: Links added.
[2019-01-08] MEDS ORDERED: IV D5/ 0.9% NACL 1,000 ML IV PRN (22:00)
[2019-01-08] MEDS: VANCOMYCIN 1 GM in IV D5W 250ml IV SCH (23:00)
[2019-01-08 23:12] LABS: BILIRUBIN,DIRECT 0.2 mg/dL (0.0-0.2); BILIRUBIN,TOTAL 0.4 mg/dL (0.2-1.0)
[2019-01-08] MEDS ORDERED: IV NS 0.9% 250 ML BAG IV PRN (23:30)
[2019-01-09] VITALS (79 sets, daily range): BP systolic 87–151; BP diastolic 36–71
[2019-01-09] MEDS: BLOOD SUGAR DIAGNOSTIC 1 EACH STRIP IN SCH ×5 (00:53→23:38)
[2019-01-09] MEDS: INSULIN REGULAR, HUMAN 100 UNIT/ML 3 ML VIAL SQ PRN ×3 (00:55→23:39)
[2019-01-09] MEDS ORDERED: MEROPENEM 1 G VIAL IV ONE (00:58)
[2019-01-09] MEDS: MEROPENEM 1 G in IV NS 0.9% 100 ML IV SCH ×3 (01:12→20:55)
[2019-01-09] MEDS: ALBUTEROL HALF STRENGTH 1.25 MG/3 ML VIAL.NEB NEB SCH ×6 (03:19→22:49)
[2019-01-09] MEDS: IPRATROPIUM NEB FS 0.5 MG/2.5 ML AMPUL.NEB NEB SCH ×6 (03:19→22:49)
[2019-01-09 04:54] LABS: BASOPHILS # (AUTO) 0.1 /CMM (0.0-0.2); BASOPHILS % (AUTO) 0.2 % (0.0-2.0); HEMATOCRIT 23 % (33-45); HEMOGLOBIN 7.4 g/dL (11.5-14.8); LYMPHOCYTES # (AUTO) 0.3 /CMM (0.8-4.8); LYMPHOCYTES % (AUTO) 1.4 % (20.0-44.0); MEAN CORPUSCULAR HGB CONC 32 g/dl (31.0-36.0); MEAN CORPUSCULAR VOLUME 80 fL (82-100); MONOCYTES # (AUTO) 1.3 /CMM (0.1-1.30); MONOCYTES % (AUTO) 5.7 % (2.0-12.0); NEUTROPHILS # (AUTO) 20.4 /CMM (1.8-8.9); NEUTROPHILS % (AUTO) 92.7 % (43.0-81.0); PLATELET COUNT (AUTO) 221 /CMM (150-450); RED BLOOD CELL COUNT(AUTO) 2.94 MIL/uL (4.0-5.2)
[2019-01-09 05:26] LABS: CARBON DIOXIDE 23 mmol/L (21-32); CHLORIDE 100 mmol/L (98-107); CREATININE 2.2 mg/dL (0.6-1.3); GLUCOSE 114 mg/dL (74-106); PHOSPHORUS 3.9 mg/dL (2.5-4.9); POTASSIUM 3.6 mmol/L (3.5-5.1); SODIUM SERUM 134 mmol/L (136-145); UREA NITROGEN, BLOOD 62 mg/dL (7-18)
[2019-01-09] MEDS: METOPROLOL TARTRATE 50 MG TABLET PO SCH ×5 (06:00→23:50)
[2019-01-09] MEDS: PROPOFOL 100 ML IV PRN (06:14)
--- NOTE | 2019-01-09 07:15 | NUR ---
RECEIVED PATIENT. INTUBATED 7. WITH VENT SETTINGS PER MD ORDER AND TOLERATING WELL. NO SOB, DIFFICULTY BREATHING. PATIENT AWAKE AND NODDING YES AND NO TO QUESTIONS ASKED. ABLE TO MOVE ALL EXTREMITIES NO DEFICITS NOTED. PATIENT LIGHTLY SEDATED ON DIPRIVAN FOR COMFORT; SEE SPREADSHEET. PATIENT NODS NO TO PAIN AT THIS TIME. RESTRAINTS IN PLACE PATIENT AWAKE NODS IN UNDERSTANDING TO EDUCATION PROVIDED. TELE NSR. MARTIN CATH IN PLACE AND DRAINING TO GRAVITY. LEFT SURGICAL SITE C/D/I; PENDING MD DRESSING CHANGE PER ORDER. ARIS PICC LINE PLACED LAST NIGHT DUE TO REQUIRING LEVO; C/D/I/P WITH GOOD BLOOD RETURN. IVF RUNNING PER MD ORDER. SAFETY, SKIN, ASPIRATION PRECAUTIONS IN PLACE AND WILL MONITOR.
--- NOTE | 2019-01-09 07:30 | NUR ---
DR VILLALOBOS AT BEDSIDE. UPDATED ON PATIENT CONDITION. NO NEW ORDERS AT THIS TIME.
--- NOTE | 2019-01-09 08:30 | NUR ---
WOUND CARE CONSULT: PT REFUSED TO TURN FOR SKIN ASSESSMENT. PER NURSING STAFF, PT TO BE EXTUBATED TODAY. WILL SEE PT PT CONDITION PERMITS.
[2019-01-09] MEDS: methylPREDNISolone SOD SUCC 125 MG/2ML VIAL IV SCH ×2 (08:39→16:50)
[2019-01-09] MEDS: NICOTINE PATCH (14MG) 14 MG PATCH.TD24 TD SCH (08:39)
[2019-01-09] MEDS: PANTOPRAZOLE 40 MG VIAL IV SCH (08:39)
[2019-01-09] MEDS: ENOXAPARIN SODIUM 40 MG/0.4 ML DISP.SYRIN SQ SCH (08:39)
[2019-01-09] MEDS: ASPIRIN 325 MG TABLET PO SCH (08:40)
[2019-01-09] MEDS ORDERED: DC PROPOFOL WHEN EXTUBATED XX PRN ×2 (09:00→10:00)
[2019-01-09 09:38] LABS: ABG BASE EXCESS -0.6 mmol/L; ABG OXYGEN SATURATION 96.3 % (92.0-98.5); ABG PCO2 31.8 mmHg (35.0-45.0); ABG PH 7.473 (7.350-7.450); ABG PO2 89.8 mmHg (75.0-100.0); AaDO2 158.8 mmHg; COHb 0.9 % (0.5-1.5); MetHb 1.2 % (0.0-1.5); O2Hb 94.3 % (94.0-97.0); SITE, ABG Right Radial
--- NOTE | 2019-01-09 09:45 | NUR ---
DR HALEY NOTIFIED OF PATIENT ABG ON SIMV AND PER MD LIGHT TO EXTUBATE PATIENT. RT CAIN AT BEDSIDE
--- NOTE | 2019-01-09 10:00 | NUR ---
RT PATIENT EXTUBATED PER DR HALEY ORDER BOOGIE WELL. PLACED ON 2L N/C.
--- NOTE | 2019-01-09 10:02 | NUR ---
PATIENT TOLERATING EXTUBATION. LOW FLOW 02 NC. NO SOB, DIFFICULTY BREATHING, PATIENT PASSED SWALLOW EVAL WITHOUT COMPLICATION. ICE CHIPS AND WATER PROVIDED. PATIENT A/OX3
--- NOTE | 2019-01-09 10:30 | NUR ---
PATIENT CONTINUES TO REFUSE TURNING DESPITE PAIN MEDICATIONS. EDUCATED ON SKIN CARE AND WOUND PREVENTION. [employer] PENDING.
--- NOTE | 2019-01-09 10:30 | NUR ---
PATIENT PASSED SWALLOW EVAL WITHOUT COMPLICATIONS.
[2019-01-09] MEDS: HYDROMORPHONE INJ 2 MG/ML DISP.SYRIN IV PRN ×3 (11:04→20:56)
--- NOTE | 2019-01-09 11:20 | NUR ---
CALLED SPOKE WITH [facility] TO F/U ON VANCO ORDER. THEY WILL DELIVER
--- NOTE | 2019-01-09 12:14 | NUR ---
KRZYSZTOF MCNAMARA RN AT BEDSIDE. PATIENT REFUSING TURNING AGAIN
--- NOTE | 2019-01-09 12:15 | NUR ---
PATIENT SLEEPING COMFORTABLY.
--- NOTE | 2019-01-09 12:17 | NUR ---
WOUND CARE CONSULT: PT CONTINUES TO REFUSE SKIN ASSESSMENT. PT NOW EXTUBATED. RECOMMENDATIONS MADE FOR SKIN PROTECTION INCLUDING FIRST STEP LOW AIRLOSS MATTRESS. DISCUSSED WITH NURSING STAFF. WILL SEE PT PT CONDITION PERMITS. MD IN AGREEMENT WITH PLAN OF CARE. CURRENT JENSEN SCORE IS 12.
[2019-01-09] MEDS ORDERED: Z GUARD REMEDY 2 OZ OINT TP PRN (12:30)
[2019-01-09] MEDS: Z GUARD REMEDY 2 OZ OINT TP SCH (13:15)
[2019-01-09] MEDS: VANCOMYCIN 1 GM in IV D5W 250ml IV SCH (13:41)
[2019-01-09] MEDS: SOD FERRIC GLUC 125 MG in IV NS 0.9% 100 ML IV SCH (14:35)
--- NOTE | 2019-01-09 16:00 | NUR ---
PATIENT BLOOD TRANSFUSION COMPLETED. TOLERATED WELL NO S/S REACTION. PATIENT ALLOWING TURNING AND OFFLOADING AT THIS TIME. [employer]CI MATTRESS PLACED
--- NOTE | 2019-01-09 19:05 | NUR ---
ANSWERING SERVICE AGENT NOTE PATIENT IS AOX3, SPEECH CLEAR, ABLE TO MAKE NEEDS KNOWN, PT ON ROOM AIR, REFUSING O2 VIA NC, NO S/SX OF RESPIRATORY DISTRESS, ON TELE SR, NO S/SX OF CARDIAC DISTRESS, MARTIN CATHETER DRAINING TO GRAVITY YELLOW URINE, SKIN KEPT CLEAN AND DRY, KRISTAL PICC LINE WITH TKO PATENT FLUSHING WELL, SAFETY MAINTAINED AT ALL TIMES, BED IN LOW, LOCKED POSITION, CALL LIGHT WITHIN REACH, WILL CONTINUE TO MONITOR FOR ANY CHANGES IN CONDITION.
--- NOTE | 2019-01-09 19:10 | NUR ---
CARE ENDORSED TO RN FOR ELIZABETH. PATIENT STABLE. TOLERATING LOW FLOW O2. STATES PAIN DIMINISHED. IV SITE C/D/I/P.MARTIN TO GRAVITY AND PATENT. LEFT INCISION SITE C/D/I. SAFETY, SKIN, ASPIRATION PRECAUTIONS IN PLACE AND MONITORED
--- NOTE | 2019-01-09 23:40 | NUR ---
ORACLE ETL DEVELOPER NOTE BS 199 PT REFUSING INSULIN ADMINISTRATION EDUCATED ON RISKS AND BENEFITS NEEDS REINFORCEMENT ON TEACHINGS
[2019-01-10] VITALS (19 sets, daily range): BP systolic 101–118; BP diastolic 50–67
[2019-01-10] MEDS: IPRATROPIUM NEB FS 0.5 MG/2.5 ML AMPUL.NEB NEB SCH ×6 (03:27→23:09)
[2019-01-10] MEDS: ALBUTEROL HALF STRENGTH 1.25 MG/3 ML VIAL.NEB NEB SCH ×6 (03:28→23:09)
[2019-01-10 04:33] LABS: HEMATOCRIT 22 % (33-45); HEMOGLOBIN 7.1 g/dL (11.5-14.8); LYMPHOCYTES # (AUTO) 0.4 /CMM (0.8-4.8); LYMPHOCYTES % (AUTO) 4.1 % (20.0-44.0); MEAN CORPUSCULAR HGB CONC 32 g/dl (31.0-36.0); MEAN CORPUSCULAR VOLUME 80 fL (82-100); MONOCYTES # (AUTO) 0.6 /CMM (0.1-1.30); MONOCYTES % (AUTO) 6.6 % (2.0-12.0); NEUTROPHILS # (AUTO) 8.6 /CMM (1.8-8.9); NEUTROPHILS % (AUTO) 89.3 % (43.0-81.0); PLATELET COUNT (AUTO) 124 /CMM (150-450); RED BLOOD CELL COUNT(AUTO) 2.75 MIL/uL (4.0-5.2); WHITE BLOOD COUNT (AUTO) 9.6 K/uL (4.3-11.0)
[2019-01-10 05:07] LABS: ALANINE AMINOTRANSFERASE 21 U/L (12-78); ALBUMIN 2.3 g/dL (3.4-5.0); ALKALINE PHOSPHATASE 79 U/L (46-116); ASPARTATE AMINOTRANSFERASE 18 U/L (15-37); BILIRUBIN,TOTAL 0.3 mg/dL (0.2-1.0); CALCIUM, SERUM 7.4 mg/dL (8.5-10.1); CARBON DIOXIDE 24 mmol/L (21-32); CHLORIDE 103 mmol/L (98-107); CREATININE 2.5 mg/dL (0.6-1.3); GLUCOSE 108 mg/dL (74-106); MAGNESIUM 2.1 mg/dL (1.8-2.4); PHOSPHORUS 4.4 mg/dL (2.5-4.9); POTASSIUM 3.8 mmol/L (3.5-5.1); SODIUM SERUM 138 mmol/L (136-145); TOTAL PROTEIN, SERUM 5.4 g/dL (6.4-8.2); UREA NITROGEN, BLOOD 68 mg/dL (7-18)
[2019-01-10] MEDS: BLOOD SUGAR DIAGNOSTIC 1 EACH STRIP IN SCH ×3 (05:19→17:50)
[2019-01-10] MEDS: METOPROLOL TARTRATE 50 MG TABLET PO SCH ×3 (05:20→17:50)
[2019-01-10] MEDS: INSULIN REGULAR, HUMAN 100 UNIT/ML 3 ML VIAL SQ PRN ×2 (05:30→17:58)
--- NOTE | 2019-01-10 05:31 | NUR ---
SHORT RANGE AIR DEFENSE ARTILLERY NOTE BS 142 DENIES HYPO/HYPERGLYCEMIA S/SX REFUSING INSULIN SLIDING SCALE, INSTRUCTED ON RISKS AND BENEFITS PT CONTINUES TO REFUSE, DRINKING SODA, EATING CHIPS AND CHOCOLATE DURING THE NIGHT
[2019-01-10] MEDS: HYDROMORPHONE INJ 2 MG/ML DISP.SYRIN IV PRN ×3 (05:39→17:50)
--- NOTE | 2019-01-10 07:15 | NUR ---
RECEIVED PATIENT FROM RN. PATIENT A/OX3 DENIES SOB, DIFFICULTY BREATHING AND TOLERATING LOW FLOW 02. STATES PAIN SIGNIFICANTLY IMPROVED AND NOW ALLOWING TURNING AND OFFLOADING. PER RN X2 PRN DILAUDID LAST NIGHT TO COVER PAIN AND PATIENT SLEPT WELL. SURGICAL DRESSING C/D/I; PENDING MD CHANGE PER ORDER. MARTIN TO GRAVITY. IV SITE C/D/I/P TKO RUNNING. DVT PUMPS IN PLACE. +CMS BELOW SURGICAL SITE. SAFETY, SKIN, ASPIRATION PRECAUTIONS IN PLACE AND WILL MONITOR
--- NOTE | 2019-01-10 07:45 | NUR ---
WOUND CARE CONSULT: PT PRESENTS WITH INCONTINENCE ASSOCIATED SKIN DAMAGE TO GLUTEAL CREASE. RECOMMENDATIONS MADE FOR SKIN PROTECTION. VERONICA TORRES NOTED. DISCUSSED WITH NURSING STAFF. PT ON FIRST STEP LOW AIRLOSS MATTRESS. DEFER TO ORTHO FOR LEFT HIP/THIGH SURGICAL SITES. WILL SEE PRN. SEAMAN IN AGREEMENT WITH PLAN OF CARE. Addendum: 01/10/19 at 0747 by KRZYSZTOF CUMMINGS WNDNU Amended: Links added.
[2019-01-10] MEDS: ASPIRIN 325 MG TABLET PO SCH (08:07)
[2019-01-10] MEDS: NICOTINE PATCH (14MG) 14 MG PATCH.TD24 TD SCH (08:07)
[2019-01-10] MEDS: PANTOPRAZOLE 40 MG VIAL IV SCH (08:07)
[2019-01-10] MEDS: methylPREDNISolone SOD SUCC 125 MG/2ML VIAL IV SCH ×2 (08:07→17:49)
[2019-01-10] MEDS: Z GUARD REMEDY 2 OZ OINT TP SCH (08:07)
[2019-01-10] MEDS: ENOXAPARIN SODIUM 40 MG/0.4 ML DISP.SYRIN SQ SCH (08:19)
[2019-01-10] MEDS: MEROPENEM 1 G in IV NS 0.9% 100 ML IV SCH (08:19)
--- NOTE | 2019-01-10 10:10 | NUR ---
REPORT GIVEN TO ELAINE LUONG FOR ELIZABETH. TRANSFER TO MED SURG PER MD ORDER.
--- NOTE | 2019-01-10 10:30 | NUR ---
MS STAFF PHARMACIST HOSPITAL NOTE RECEIVED PT FROM ICU VIA BED. PT IS ALERT AND ORIENTED X4, DENIES CHEST PAIN, SOB, N/V, BREATHING IS EVEN AND UNLABORED ON 2L NC. PT DENIES ANY PAIN AT THIS TIME. VS OBTAINED PER PROTOCOL. PT NOTED TO HAVE A RIGHT UPPER ARM DOUBLE LUMEN PICC LINE THAT IS PATENT WITH GOOD BLOOD RETURN, CLEAN, DRY AND INTACT. PT NOTED WITH MARTIN CATHETER THAT IS DRAINING CLEAR, YELLOW URINE. LEFT HIP SURGICAL DRESSING IS CLEAN, DRY AND INTACT. PT DENIES CHANGES IN SENSATION, PRESENCE OF NUMBNESS OR TINGLING, AND IS ABLE MOVE AND WIGGLE TOES AND ANKLE AT THIS TIME. PT IS PENDING FIRST PT EVALUATION AND IS REQUESTING DILAUDID PRIOR TO WORKING WITH PT. PT HAS ORDERS FOR TRANSFUSION OF 1 UNIT PRBC THAT IS PENDING. BELONGINGS AND CHART REVIEWED. SCDS AND [facility]CI MATTRESS IN PLACE. UNIT ORIENTATION PROVIDED. BED IS LOCKED AND IN LOWEST POSITION, SIDE RAILS UP X2, BED ALARM ON, CALL LIGHT AND POSSESSIONS WITHIN REACH.
--- NOTE | 2019-01-10 12:19 | NUR ---
MS RN NOTE PRBC TRANSFUSION ADMINISTERED ORDERED UTILIZING 2 RN VERIFICATION AND PER PROTOCOL. VS: BP: 106/60, HR: 65, SP02: 100%, R: 20, T: 97.8.
--- NOTE | 2019-01-10 12:30 | NUR ---
MS RN NOTE PER KAJAL ALDANA SHE WILL DO DRESSING CHANGE TOMORROW.
--- NOTE | 2019-01-10 15:20 | NUR ---
MS RN NOTE TRANSFUSION OF 1 UNIT PRBC COMPLETED. VS OBTAINED AND WITHIN BASELINE. PT DENIES CHEST PAIN, SOB, LOWER BACK PAIN, CHILLS. NO PRESENCE OF FEVER. PT TOLERATED PROCEDURE WELL.
[2019-01-10] MEDS: SOD FERRIC GLUC 125 MG in IV NS 0.9% 100 ML IV SCH (15:42)
[2019-01-10] MEDS ORDERED: MEROPENEM 500 MG in IV NS 0.9% 100 ML IV SCH (18:00)
--- NOTE | 2019-01-10 18:45 | NUR ---
MS RN CLOSING NOTE PT IS ALERT AND ORIENTED X4, DENIES CHEST PAIN, SOB, N/V, BREATHING IS EVEN AND UNLABORED ON 2L NC. PT DENIES ANY PAIN AT THIS TIME. PT NOTED TO HAVE A RIGHT UPPER ARM DOUBLE LUMEN PICC LINE THAT IS PATENT WITH GOOD BLOOD RETURN, CLEAN, DRY AND INTACT. PT NOTED WITH MARTIN CATHETER THAT IS DRAINING CLEAR, YELLOW URINE. LEFT HIP SURGICAL DRESSING IS CLEAN, DRY AND INTACT WITH PLANS FOR DRESSING CHANGE TOMORROW PER KAJAL ALDANA. NEUROVASCULAR STATUS INTACT. SCDS AND [employer] MATTRESS IN PLACE. ALL NEEDS ATTENDED TO. ADLS PROVIDED AND PT ASSISTED TO TURN AND REPOSITION Q2H FOR THE DURATION OF THE SHIFT. BED IS LOCKED AND IN LOWEST POSITION, SIDE RAILS UP X2, BED ALARM ON, CALL LIGHT AND POSSESSIONS WITHIN REACH. WILL ENDORSE TO FUEL HOUSE ATTENDANT NURSE FOR CONTINUITY OF CARE.
--- NOTE | 2019-01-10 20:00 | NUR ---
RN NOTES RECEIVED PATIENT AWAKE IN BED, ALL SAFETY MEASURES IN PLACE, ASPIRATION PRECAUTION OBSERVED, PATIENTS FAMILY MEMBERS AT BEDSIDE, IV ACCESS INTACT AND PATENT, MARTIN CATHETER INTACT AND PATENT DRAINING TO A YELLOW URINE OUTPUT, WILL CONTINUE TO MONITOR ACCORDINGLY.
[2019-01-11] MEDS: BLOOD SUGAR DIAGNOSTIC 1 EACH STRIP IN SCH ×4 (00:08→17:27)
[2019-01-11] MEDS: METOPROLOL TARTRATE 50 MG TABLET PO SCH ×4 (00:11→17:19)
[2019-01-11] MEDS: INSULIN REGULAR, HUMAN 100 UNIT/ML 3 ML VIAL SQ PRN ×3 (00:23→17:26)
[2019-01-11] MEDS: ALBUTEROL HALF STRENGTH 1.25 MG/3 ML VIAL.NEB NEB SCH ×6 (03:30→23:02)
[2019-01-11] MEDS: IPRATROPIUM NEB FS 0.5 MG/2.5 ML AMPUL.NEB NEB SCH ×6 (03:30→23:01)
--- NOTE | 2019-01-11 07:30 | NUR ---
RN NOTES PATIENT A/OX4, BREATHING EVEN AND UNLABORED, NO SOB NOTED, PATIENT ON BREATHING TX, DENIES PAIN OR DISCOMFORT AT THIS TIME, KEPT COMFORTABLE, NEEDS ATTENDED, CALL LIGHT WITHIN REACH, WILL CONTINUE TO MONITOR.
--- NOTE | 2019-01-11 07:59 | NUR ---
RN NOTES ALL NEEDS ATTENDED, PATIENT ABLE TO REST AND SLEEP WITH SHORT INTERVALS, ENDORSED TO AM NURSE FOR CONTINUITY OF CARE.
[2019-01-11 08:00] VITALS: BP 119/64
[2019-01-11] MEDS: PANTOPRAZOLE 40 MG VIAL IV SCH (09:00)
[2019-01-11] MEDS: ASPIRIN 325 MG TABLET PO SCH (09:01)
[2019-01-11] MEDS: methylPREDNISolone SOD SUCC 125 MG/2ML VIAL IV SCH (09:01)
[2019-01-11] MEDS: NICOTINE PATCH (14MG) 14 MG PATCH.TD24 TD SCH (09:01)
[2019-01-11] MEDS: Z GUARD REMEDY 2 OZ OINT TP SCH (09:02)
[2019-01-11] MEDS: HYDROMORPHONE INJ 2 MG/ML DISP.SYRIN IV PRN (10:12)
[2019-01-11 10:37] LABS: BASOPHILS % (AUTO) 0.1 % (0.0-2.0); HEMATOCRIT 30 % (33-45); HEMOGLOBIN 9.7 g/dL (11.5-14.8); LYMPHOCYTES # (AUTO) 0.8 /CMM (0.8-4.8); MEAN CORPUSCULAR HGB CONC 33 g/dl (31.0-36.0); MEAN CORPUSCULAR VOLUME 83 fL (82-100); MONOCYTES # (AUTO) 1.1 /CMM (0.1-1.30); MONOCYTES % (AUTO) 6.8 % (2.0-12.0); NEUTROPHILS # (AUTO) 13.9 /CMM (1.8-8.9); NEUTROPHILS % (AUTO) 88.1 % (43.0-81.0); PLATELET COUNT (AUTO) 165 /CMM (150-450); RED BLOOD CELL COUNT(AUTO) 3.61 MIL/uL (4.0-5.2); WHITE BLOOD COUNT (AUTO) 15.7 K/uL (4.3-11.0)
[2019-01-11 10:49] LABS: ALANINE AMINOTRANSFERASE 20 U/L (12-78); ALBUMIN 2.5 g/dL (3.4-5.0); ALKALINE PHOSPHATASE 99 U/L (46-116); ASPARTATE AMINOTRANSFERASE 14 U/L (15-37); BILIRUBIN,TOTAL 0.4 mg/dL (0.2-1.0); CALCIUM, SERUM 7.7 mg/dL (8.5-10.1); CARBON DIOXIDE 22 mmol/L (21-32); CHLORIDE 102 mmol/L (98-107); CREATININE 2.5 mg/dL (0.6-1.3); GLUCOSE 147 mg/dL (74-106); PHOSPHORUS 3.5 mg/dL (2.5-4.9); POTASSIUM 3.9 mmol/L (3.5-5.1); SODIUM SERUM 136 mmol/L (136-145); TOTAL PROTEIN, SERUM 5.9 g/dL (6.4-8.2); UREA NITROGEN, BLOOD 70 mg/dL (7-18)
[2019-01-11] MEDS: ENOXAPARIN SODIUM 40 MG/0.4 ML DISP.SYRIN SQ SCH (11:33)
--- NOTE | 2019-01-11 15:00 | NUR ---
RN NOTES MARTIN CATHETER REMOVED, PATIENT TOLERATED PROCEDURE WELL. MANPREET BAILEY VOIDING TRIAL. DISCUSSED WITH PATRICK BLAKE RE: REMOVAL OF PICC LINE, PER FOOD SELECTOR, KEEP PICC LINE TIL FUTHER ORDER.
[2019-01-11 16:00] VITALS: BP 105/58
--- NOTE | 2019-01-11 18:23 | NUR ---
RN NOTES PATIENT A/OX3, BREATHING EVEN AND UNLABORED, NO SOB NOTED, TURNED AND REPOSITIONED EVERY 2 HOURS, SKIN CARE RENDERED, PATIENT WAS ABLE TO STAND WITH PT, BUT STILL C/O DIZZINESS, DENIES PAIN OR DISCOMFORT AT THIS TIME, NEEDS ATTENDED AND MET, CALL LIGHT WITHIN REACH, WILL ENDORSE TO PACKING LINE OPERATOR FOR ELIZABETH.
--- NOTE | 2019-01-11 18:55 | NUR ---
PATIENT STILL HASN'T VOIDED SINCE 1500 (REMOVAL OF MARTIN). PLACED STRAIGHT CATHETER IF PATIENT HASN'T VOIDED BY [phone].
--- NOTE | 2019-01-11 19:45 | NUR ---
MS PUTTY MAKER NOTES PT AWAKE AND ALERT WATCHING TV AT THIS TIME. NO SIGNS OF ANY DISCOMFORT NOTED. DRESSING ON HER LEFT HIP PATENT AND INTACT. KEPT HER WARM AND COMFORTABLE AT ALL TIMES. PLACE CALL LIGHT AT REACH. ENCOURAGE HER TO USED THE CALL LIGHT IF SHE NEEDS SOME HELP. WILL CONTINUE MONITORING.
[2019-01-11 20:00] VITALS: BP 122/74
[2019-01-12] MEDS: BLOOD SUGAR DIAGNOSTIC 1 EACH STRIP IN SCH ×3 (00:10→12:33)
--- NOTE | 2019-01-12 00:10 | NUR ---
MS MERCHANDISING ASSISTANT NOTES BLOOD SUGAR CHECKED 116, NO INSULIN COVERAGES AT THIS TIME. PT ASKING FOR HER PAIN MEDICATION . LEFT HIP PAIN .
[2019-01-12] MEDS: HYDROMORPHONE INJ 2 MG/ML DISP.SYRIN IV PRN ×2 (00:24→05:48)
--- NOTE | 2019-01-12 00:24 | NUR ---
MS JAIME NOTES DILAUDID 2 MG GIVEN DREW IVP ORDERED BY ANOTHER NURSE . EDUCATE PT FOR POSSIBLE SIDE EFFECT AND PT UNDERSTOOD WELL. KEPT HER WARM AND COMFORTABLE AT ALL TIMES. PLACE CALL LIGHT AT REACH.
[2019-01-12] MEDS: METOPROLOL TARTRATE 50 MG TABLET PO SCH ×3 (00:35→12:33)
--- NOTE | 2019-01-12 02:24 | NUR ---
MS TOP WADDY NOTES PT SLEEPING COMFORTABLY IN BED WITHOUT ANY ACUTE DISTRESS NOTED.
[2019-01-12] MEDS: IPRATROPIUM NEB FS 0.5 MG/2.5 ML AMPUL.NEB NEB SCH ×4 (03:30→15:30)
[2019-01-12] MEDS: ALBUTEROL HALF STRENGTH 1.25 MG/3 ML VIAL.NEB NEB SCH ×4 (03:30→15:30)
[2019-01-12] MEDS: CLONIDINE HCL 0.1MG/24H PTWK 1 EA PATCH TD SCH (06:35)
--- NOTE | 2019-01-12 07:13 | NUR ---
ms suction roller closing notes pt resting comfortably in bed after pain medication given as ordered. blood sugar checked 77, orange juice served . no signs of hypo glycemia noted. stable zaid the night and slept well. kept her warm and comfortable at all times. all due meds given and all needs met. . on semi fowlers position with side rails x2 up and bed in low and lock in position. endorse to am nurse for continuity of care. place call light at reach.
[2019-01-12] MEDS ORDERED: PANTOPRAZOLE 40 MG TABLET.DR PO SCH (07:30)
--- NOTE | 2019-01-12 07:30 | NUR ---
RN NOTES PATIENT A/OX3, NO DISTRESS NOTED, ENDORSED BY MERCHANDISE EXAMINER NURSE, PATIENT HAS VOIDED LAST NIGHT. DENIES PAIN OR DISCOMFORT AT THIS TIME, NEEDS ATTENDED, CALL LIGHT WITHIN REACH, WILL CONTINUE TO MONITOR.
[2019-01-12 07:37] LABS: BASOPHILS % (AUTO) 0.1 % (0.0-2.0); HEMATOCRIT 28 % (33-45); HEMOGLOBIN 9.1 g/dL (11.5-14.8); LYMPHOCYTES # (AUTO) 1.3 /CMM (0.8-4.8); LYMPHOCYTES % (AUTO) 9.3 % (20.0-44.0); MEAN CORPUSCULAR HGB CONC 33 g/dl (31.0-36.0); MEAN CORPUSCULAR VOLUME 83 fL (82-100); MONOCYTES # (AUTO) 1.1 /CMM (0.1-1.30); NEUTROPHILS # (AUTO) 11.1 /CMM (1.8-8.9); NEUTROPHILS % (AUTO) 82.6 % (43.0-81.0); PLATELET COUNT (AUTO) 168 /CMM (150-450); RED BLOOD CELL COUNT(AUTO) 3.33 MIL/uL (4.0-5.2); WHITE BLOOD COUNT (AUTO) 13.4 K/uL (4.3-11.0)
[2019-01-12 07:55] LABS: CALCIUM, SERUM 7.5 mg/dL (8.5-10.1); CARBON DIOXIDE 23 mmol/L (21-32); CHLORIDE 103 mmol/L (98-107); CREATININE 2.2 mg/dL (0.6-1.3); GLUCOSE 86 mg/dL (74-106); POTASSIUM 4.3 mmol/L (3.5-5.1); SODIUM SERUM 136 mmol/L (136-145); UREA NITROGEN, BLOOD 68 mg/dL (7-18)
[2019-01-12 08:00] VITALS: BP 123/64
[2019-01-12] MEDS ORDERED: FUROSEMIDE 40 MG/4 ML VIAL IV SCH (08:00)
[2019-01-12] MEDS: ASPIRIN 325 MG TABLET PO SCH (08:12)
[2019-01-12] MEDS: NICOTINE PATCH (14MG) 14 MG PATCH.TD24 TD SCH (08:13)
[2019-01-12] MEDS: ENOXAPARIN SODIUM 40 MG/0.4 ML DISP.SYRIN SQ SCH (08:13)
[2019-01-12] MEDS: Z GUARD REMEDY 2 OZ OINT TP SCH (08:24)
[2019-01-12] MEDS ORDERED: methylPREDNISolone SOD SUCC 125 MG/2ML VIAL IV SCH (09:00)
[2019-01-12] MEDS ORDERED: ASPI-992 PO (11:29)
[2019-01-12] MEDS ORDERED: METO50TA16 PO (11:29)
[2019-01-12 12:33] VITALS: BP 134/59
--- NOTE | 2019-01-12 15:36 | NUR ---
RN NOTES PATIENT HAD PHYSICAL THERAPY THIS MORNING, WAS ABLE TO TAKE A FEW STEPS ONLY. PATIENT STILL C/O SLIGHT DIZZINESS. PATIENT TURNED AND REPOSITIONED EVERY 2 HOURS, SKIN ASSESSMENT COMPLETED, PHOTOS TAKEN AND PLACED IN CHART, PATIENT ALSO HAD A LARGE BM. REPORT GIVEN TO RAAD AT [facility]. DISCHARGE INSTRUCTIONS GIVEN TO PATIENT AND RN SNF. BOTH VERBALIZED UNDERSTANDING. NEEDS ATTENDED AND MET, CALL LIGHT IWTHIN REACH, AWAITING FOR TRANSPORTATION.
--- NOTE | 2019-01-12 16:30 | NUR ---
RN NOTES PATIENT LEFT THE FACILITY VIA AMBULANCE, REPORT GIVEN TO EMT. SKIN CARE RENDERED. KRISTAL PICC LINE REMOVED AND COVERED WITH DRESSING. PIV REMOVED. PATIENT IN STABLE CONDITION.
== END 2019-01-12 16:30 | DRG 480 ==
LOC: MED 22:51 → TELE 23:50 → MED 01-06 10:14 → ICU 01-08 16:43 → MED 01-10 10:31
PROVIDERS: ADMIT Internal Medicine; ATTEND Internal Medicine
PROC: 0QS706Z Reposition Left Upper Femur with Intramedullary Internal Fixation Device, Open Approach (ICD-10-PCS; principal; 2019-01-08)
PROC: 02HV33Z Insertion of Infusion Device into Superior Vena Cava, Percutaneous Approach (ICD-10-PCS; 2019-01-08)
PROC: B548ZZA Ultrasonography of Superior Vena Cava, Guidance (ICD-10-PCS; 2019-01-08)
PROC: 30233N1 Transfusion of Nonautologous Red Blood Cells into Peripheral Vein, Percutaneous Approach (ICD-10-PCS; 2019-01-09)
DX: S72.142A Displaced intertrochanteric fracture of left femur, initial encounter for closed fracture (principal); I21.4 Non-ST elevation (NSTEMI) myocardial infarction; N17.0 Acute kidney failure with tubular necrosis; D68.59 Other primary thrombophilia; D62 Acute posthemorrhagic anemia; E87.2 Acidosis; W19.XXXA Unspecified fall, initial encounter; Y92.9 Unspecified place or not applicable; I11.0 Hypertensive heart disease with heart failure; I50.9 Heart failure, unspecified; J44.9 Chronic obstructive pulmonary disease, unspecified; Z91.14 Patient's other noncompliance with medication regimen; Z87.09 Personal history of other diseases of the respiratory system; Z59.0 Homelessness; M19.90 Unspecified osteoarthritis, unspecified site; I25.2 Old myocardial infarction; I25.10 Atherosclerotic heart disease of native coronary artery without angina pectoris; G89.29 Other chronic pain; B19.20 Unspecified viral hepatitis C without hepatic coma; Z86.59 Personal history of other mental and behavioral disorders; F17.210 Nicotine dependence, cigarettes, uncomplicated; J45.909 Unspecified asthma, uncomplicated; Z79.899 Other long term (current) drug therapy; Z74.09 Other reduced mobility; F19.10 Other psychoactive substance abuse, uncomplicated; D72.829 Elevated white blood cell count, unspecified; I35.2 Nonrheumatic aortic (valve) stenosis with insufficiency; I70.0 Atherosclerosis of aorta; R09.02 Hypoxemia
CPT/HCPCS: 31720; 36415; 36569; 36600; 71045-TC; 73020; 73552; 80048-TC; 80053-TC; 80061-TC; 80305; 81000-TC; 82247-TC; 82248-TC; 82272-TC; 82803-TC; 82962-TC; 83540-TC; 83605-TC; 83735-TC; 83880; 84100-TC; 84439-TC; 84443-TC; 84484-TC; 85025-TC; 85610-TC; 85652-TC; 85730-TC; 86850-TC; 86921-TC; 87040-TC; 87081-TC; 87086-TC; 94002-TC; 94003-TC; 94760-TC; 94799-TC; 97110-TC; 97116-TC; 97530-TC; A6209; A6253; A6402; A6403; C1713; C1751; C9113; G0378; J0360; J1170; J1650; J1815; J1940; J2060; J2185; J2250; J2310; J2405; J2704; J2710; J2916; J2930; J3010; J3370; J3480; J3490; J7030; J7040; J7042; J7050; J7060; P9016-BL

== ENCOUNTER 2019-02-15 00:56 | Inpatient (IN) | payer MEDICARE, MEDICAID ==
[2019-02-15] VITALS (24 sets, daily range): BP systolic 73–182; BP diastolic 23–105
[~2019-02-15] VITALS: Ht 165.1 cm; Wt 65.8 kg
[~2019-02-15 00:56] MED LIST changes: +ASPI-992 PO; +METO50TA16 PO; -NICO-677 TD; -OSEL75CA PO; -THIA100T13 PO; +THIA100T74 PO
--- NOTE | 2019-02-15 00:56 | NUR ---
PT BIB RA FROM [facility] WITH A C/O AMS - MORE THAN USUAL. PT HAS PIN POINT PUPILS, APPEARS DROWSY, HYPOXIC, HAS FENTENYL PATCH ON RT UPPER ARM AND HAS BILATERAL WHEEZES AND RHONCHI NOTED. PT WAS PLACED ON THE MONITOR AND COTINUOUS PULSE OX. PT IS 89% ON RA AND HYPOTENSIVE. PT ARRIVED WITH A BREATHING TX IN PROGRESS AND A 20G IV ON LT HAND. IV IS NOT FLUSHING WELL. PT RESPONDS TO QUESTIONS, BUT APPEARS VERY DROWSY. PT WAS PLACED ON 2.5L O2 VIA NC AND IS SATURATING AT 92%. PT IS TACHYPENIC WITH RESP 24. DR DENNISON IS AT THE BEDSIDE EVALUATING THE PT.
--- NOTE | 2019-02-15 01:20 | NUR ---
20G IV STARTED IN RAC. BLOOD DRAW STARTED. SURGICAL DEVICE SALES REPRESENTATIVE IS AT THE BEDSIDE AND WILL HAVE TO DRAW.
[2019-02-15] MEDS ORDERED: NALOXONE HCL 0.4 MG/ML AMPUL ONE (01:26)
[2019-02-15] MEDS ORDERED: CEFTRIAXONE 1GM BAG (ER ONLY) 50 ML IV ONE (01:26)
[2019-02-15] MEDS ORDERED: NALOXONE PREFILLED SYRINGE 2 MG/2 ML SYRINGE ONE ×2 (01:27→02:49)
[2019-02-15] MEDS ORDERED: IV NS 0.9% 1,000 ML BAG IV ONE (01:30)
[2019-02-15] MEDS ORDERED: IV NS 0.9% 500 ML BAG IV ONE ×2 (01:30→12:30)
[2019-02-15] MEDS ORDERED: CEFTRIAXONE 1 G in IV D5W 50 ML IV ONE (01:30)
[2019-02-15] MEDS ORDERED: NALOXONE HCL 0.4 MG/ML AMPUL IV ONE ×2 (01:30→03:00)
--- NOTE | 2019-02-15 01:35 | NUR ---
NARCAN GIVEN IVP BY ELAINE HAMEED AND PT IMMEDIATELY WOKE UP.
--- NOTE | 2019-02-15 01:35 | NUR ---
MARTIN CATH INSERTED. REDNESS/EXCORIATION NOTED ON THE VAGINAL AND PERINEAL AREA.
[2019-02-15 01:36] LABS: ABG BASE EXCESS -2.6 mmol/L; ABG OXYGEN SATURATION 98.5 % (92.0-98.5); ABG PH 7.346 (7.350-7.450); ABG PO2 161.7 mmHg (75.0-100.0); AaDO2 508.3 mmHg; MetHb 0.8 % (0.0-1.5); O2Hb 96.7 % (94.0-97.0); SITE, ABG Right Radial; VENT MODE, BG 100% NRB
[2019-02-15 01:42] LABS: BASOPHILS % (AUTO) 0.5 % (0.0-2.0); EOSINOPHILS % (AUTO) 2.6 % (0.0-6.0); HEMATOCRIT 30 % (33-45); HEMOGLOBIN 9.9 g/dL (11.5-14.8); LYMPHOCYTES # (AUTO) 2.3 /CMM (0.8-4.8); LYMPHOCYTES % (AUTO) 34.1 % (20.0-44.0); MEAN CORPUSCULAR HGB CONC 33 g/dl (31.0-36.0); MEAN CORPUSCULAR VOLUME 90 fL (82-100); MONOCYTES # (AUTO) 0.7 /CMM (0.1-1.30); MONOCYTES % (AUTO) 11.1 % (2.0-12.0); NEUTROPHILS # (AUTO) 3.5 /CMM (1.8-8.9); NEUTROPHILS % (AUTO) 51.7 % (43.0-81.0); PLATELET COUNT (AUTO) 221 /CMM (150-450); WHITE BLOOD COUNT (AUTO) 6.8 K/uL (4.3-11.0)
[2019-02-15 01:50] LABS: CALCIUM, SERUM 8.6 mg/dL (8.5-10.1); CARBON DIOXIDE 29 mmol/L (21-32); CHLORIDE 104 mmol/L (98-107); CREATININE 1.8 mg/dL (0.6-1.3); GLUCOSE 112 mg/dL (74-106); POTASSIUM 4.7 mmol/L (3.5-5.1); SODIUM SERUM 141 mmol/L (136-145); UREA NITROGEN, BLOOD 30 mg/dL (7-18)
[2019-02-15 02:05] LABS: APPEARANCE,URINE Slightly Cloudy (CLEAR); BILIRUBIN,URINE Negative (NEGATIVE); BLOOD, URINE Moderate Ery/uL (NEGATIVE); COLOR,URINE Yellow (YELLOW); KETONES,URINE Negative (NEGATIVE); LEUKOCYTE ESTERASE ,URINE Small (NEGATIVE); NITRITE, URINE Negative (NEGATIVE); PROTEIN,URINE Trace mg/dl (NEGATIVE); UGLUCOSE Negative (NEGATIVE); UROBILINOGEN,URINE 0.2 EU/dL (0.2)
[2019-02-15 02:06] LABS: ACETAMINOPHEN 2 ug/ml (10-30); ALANINE AMINOTRANSFERASE 13 U/L (12-78); ALBUMIN 2.9 g/dL (3.4-5.0); ALCOHOL, BLOOD < 3 mg/dL (0-0); ALKALINE PHOSPHATASE 137 U/L (46-116); ASPARTATE AMINOTRANSFERASE 14 U/L (15-37); B-TYPE NATRIURETIC PEPTIDE 1586 PG/ML (0-125); BILIRUBIN,TOTAL 0.2 mg/dL (0.2-1.0); TOTAL PROTEIN, SERUM 6.9 g/dL (6.4-8.2)
[2019-02-15 02:07] LABS: SALICYLATE 1.2 mg/dL (2.8-20.0)
[2019-02-15 02:17] LABS: SERUM AMMONIA 14 umol/L (11-32)
[2019-02-15 02:29] LABS: THYROID STIMULATING HORMONE 8.323 uIU/mL (0.358-3.74)
[2019-02-15 02:41] LABS: BACTERIA,URINE Moderate /HPF (None Seen); RBC,URINE 21-50 /HPF (0-2)
[2019-02-15 02:42] LABS: SQUAMOUS EPITHELIAL CELL,UR Moderate /HPF (None Seen)
--- NOTE | 2019-02-15 02:47 | NUR ---
PT'S BNP IS ELEVATED. IVF HELD AND DR DENNISON ASKED IF HE WANTS TO CONTINUE THE FLUID DUE TO ELEVATED BNP.
[2019-02-15] MEDS ORDERED: NALOXONE HCL 2 MG in IV D5W 245 ML IV PRN ×2 (03:00→04:00)
--- NOTE | 2019-02-15 03:00 | NUR ---
RESUME SEPSIS IVF PER DR. DENNISON.
--- NOTE | 2019-02-15 03:02 | NUR ---
NARCAN BOLUS FOLLOWED BY NARCAN DRIP WAS STARTED AT RATE OF 0.4MG = 50ML/HR PER DR DENNISON'S ORDER. PT REMAINED ON THE MONITOR . WILL CONT TO MONITOR ,
--- NOTE | 2019-02-15 03:04 | NUR ---
NURSING SUP GAVE ICU BED 255.
[2019-02-15] MEDS ORDERED: OXYC-133 PO (03:21)
[2019-02-15] MEDS ORDERED: BISA-79 PR (03:21)
[2019-02-15] MEDS ORDERED: NA P133E RC (03:21)
[2019-02-15] MEDS ORDERED: GABA-532 PO (03:21)
[2019-02-15] MEDS ORDERED: TIZA4TAB4 PO (03:21)
[2019-02-15] MEDS ORDERED: MAGN2400 PO (03:21)
[2019-02-15] MEDS ORDERED: TYL2T PO (03:21)
[2019-02-15] MEDS ORDERED: ENOX40DI SQ (03:26)
[2019-02-15] MEDS ORDERED: AMIN30LI2 PO (03:26)
[2019-02-15] MEDS ORDERED: MULT-213 PO (03:26)
[2019-02-15] MEDS ORDERED: ZINC220T PO (03:26)
[2019-02-15] MEDS ORDERED: ASCO500T9 PO (03:26)
[2019-02-15] MEDS ORDERED: METO25TA6 PO (03:29)
[2019-02-15] MEDS ORDERED: SENN-168 PO (03:29)
[2019-02-15] MEDS ORDERED: MAGNESIUM HYDROXIDE 30 ML UDC PO PRN (04:00)
[2019-02-15] MEDS ORDERED: ALBUTEROL FS 2.5 MG/0.5 ML VIAL.NEB NEB PRN (04:00)
[2019-02-15] MEDS ORDERED: MAG HYDROX/AL HYDROX/SIMETH 30 ML UDC PO PRN (04:00)
[2019-02-15] MEDS ORDERED: NOREPINEPHRINE 8 MG in IV D5W 500 ML IV PRN (04:00)
[2019-02-15] MEDS ORDERED: ONDANSETRON HCL/PF 4 MG/2 ML VIAL IVP PRN (04:00)
[2019-02-15] MEDS ORDERED: Z GUARD REMEDY 2 OZ OINT TP PRN (04:00)
--- NOTE | 2019-02-15 04:10 | NUR ---
RECTAL TEMP TAKEN AND IT IS 99.2F. DR. DENNISON NOTIFIED.
--- NOTE | 2019-02-15 04:16 | NUR ---
report given to facundo HENRY. at ICU
[2019-02-15 05:19] LABS: MAGNESIUM 1.9 mg/dL (1.8-2.4); PHOSPHORUS 6.3 mg/dL (2.5-4.9)
[2019-02-15 05:22] LABS: CHOLESTEROL 144 mg/dL (<200); HDL CHOLESTEROL 54 mg/dL (40-60); LDL 85 mg/dL (0-99); TRIGLYCERIDES 82 mg/dL (30-150)
[2019-02-15] MEDS: IV NS 0.9% 1,000 ML IV PRN ×2 (05:29→17:37)
--- NOTE | 2019-02-15 05:48 | NUR ---
NOTIFIED ARASH OF CRITICAL RESULTS LACTIC ACID 2.7. GIVEN ORDERS TO GIVE 1LITER BOLUS AND RECHECK LACTIC ACID IN 2 HOURS. READ BACK ORDERS PERFORMED AND CARRIED OUT.
[2019-02-15] MEDS: METOPROLOL TARTRATE 50 MG TABLET PO SCH ×4 (06:23→23:07)
[2019-02-15] MEDS: ACETAMINOPHEN 325 MG TABLET PO PRN ×2 (06:35→18:06)
[2019-02-15] MEDS ORDERED: FUROSEMIDE 40 MG/4 ML VIAL ONE (06:48)
--- NOTE | 2019-02-15 06:55 | NUR ---
NOTIFIED CORONARY CLINICAL SPECIALIST ARASH WASTE MANAGEMENT ENGINEER THAT PT BEGAN TO SOUND CONGESTED AND WAS NOTIFIED TO HOLD FLUIDS FOR NOW. GIVE 40MG LASIX IV AND CHEST XRAY. READ BACK ORDERS PERFORMED AND CARRIED OUT.
[2019-02-15] MEDS ORDERED: FUROSEMIDE 40 MG/4 ML VIAL IV ONE (07:00)
--- NOTE | 2019-02-15 07:10 | NUR ---
RN INITIAL NOTES RECEIVED PT ASLEEP, EASILY AROUSABLE. ON 02 VIA NC AT 2LPM. NO RESPIRATORY DISTRESS NOTED. NO SOB NOTED. NO SIGNS OF PAIN NOTED. IV LINE IN PLACE. NARCAN DRIP OFF AT 0700. FC IN PLACE. NO HEMATURIA NOTED. PT LATEST TEMP- 101. GIVEN TYLENOL AT 0630. PT PROVIDED COOLING MEASURES. WILL CONTINUE TO MONITOR.
--- NOTE | 2019-02-15 07:15 | NUR ---
PT REMAINS IN NO ACUTE DISTRESS IN BED. PT DID NOT HAVE ANY SIGNIFICANT CHANGE IN CONDITION DURING SHIFT. ALL NEEDS MET, ALL ORDERS CARRIED OUT. WILL ENDORSE CARE TO AM RN FOR CONTINUITY OF CARE.
[2019-02-15] MEDS: ENOXAPARIN SODIUM 30 MG/0.3 ML DISP.SYRIN SQ SCH (08:13)
[2019-02-15] MEDS: NICOTINE PATCH (14MG) 14 MG PATCH.TD24 TD SCH (08:13)
[2019-02-15] MEDS: ASCORBIC ACID 500 MG TABLET PO SCH (08:15)
[2019-02-15] MEDS: THIAMINE HCL 100 MG TABLET PO SCH (08:15)
[2019-02-15] MEDS: MULTIVIT W/MINERALS 1 TAB TABLET PO SCH (08:15)
[2019-02-15] MEDS: ZINC SULFATE 220 MG CAPSULE PO SCH (08:15)
[2019-02-15] MEDS: FOLIC ACID 1 MG TABLET PO SCH (08:15)
[2019-02-15] MEDS: GABAPENTIN 100 MG CAPSULE PO SCH ×2 (08:15→17:02)
[2019-02-15] MEDS: PROSOURCE / PROSTAT (PYXIS) 30 ML UDC PO SCH (08:15)
[2019-02-15] MEDS: PANTOPRAZOLE 40 MG TABLET.DR PO SCH (08:15)
[2019-02-15] MEDS: ASPIRIN 325 MG TABLET PO SCH (08:15)
[2019-02-15] MEDS ORDERED: HYDROCHLOROTHIAZIDE 25 MG TABLET PO SCH (09:00)
[2019-02-15] MEDS ORDERED: Medication Not On Formulary EA (Multivitamins W-Minerals (Multivitamins With Minerals) 1 PO SCH (09:00)
[2019-02-15] MEDS ORDERED: FUROSEMIDE 20 MG TABLET PO SCH (09:00)
--- NOTE | 2019-02-15 10:50 | NUR ---
RN NOTES SEEN AND EXAMINED BY DR YAO ZACARIAS. MD AWARE OF LAB VALUES AND IMAGING STUDIES. PT AWAKE, A/OX 2-3. NARCAN DRIP OFF AT 0700. PT REMAINS FEBRILE. TYLENOL GIVEN ORDERED. COOLING MEASURES ON. URINE AND BLOOD CX PENDING. NOTED BP ON LOW 80S. DR VILLALOBOS CONSULTED. AWAITING FOR CALL BACK. WILL CONTINUE TO MONITOR
--- NOTE | 2019-02-15 13:00 | NUR ---
RN NOTES [address] SAMAYOA FOR FF UP. NO RESPONSE FROM DR VILLALOBOS YET. SBP REMAINS 70-80S. PT A/OX2-3, FOLLOW COMMANDS. MD ORDERED NS 500ML BOLUS. WILL MONITOR. 1300 NS BOLUS DONE. LATEST SBP 100S. WILL CONTINUE IVF ORDERED. WILL CLOSELY MONITOR
[2019-02-15 13:35] LABS: URINE TOTAL PROTEIN 3.7 mg/dL (0-11.9)
[2019-02-15 13:41] LABS: APPEARANCE,URINE CLEAR (CLEAR); BILIRUBIN,URINE NEGATIVE (NEGATIVE); BLOOD, URINE 1+ Ery/uL (NEGATIVE); COLOR,URINE YELLOW (YELLOW); KETONES,URINE NEGATIVE (NEGATIVE); LEUKOCYTE ESTERASE ,URINE NEGATIVE (NEGATIVE); NITRITE, URINE NEGATIVE (NEGATIVE); PROTEIN,URINE NEGATIVE (NEGATIVE); UGLUCOSE NEGATIVE (NEGATIVE); UROBILINOGEN,URINE 0.2 EU/dL (0.2)
[2019-02-15 13:56] LABS: BACTERIA,URINE 1+ /HPF (None Seen); WBC,URINE 0-2 /HPF (0-3); YEAST,URINE Few /HPF (None Seen)
[2019-02-15 18:21] LABS: EOSINOPHIL,URINE None Seen
--- NOTE | 2019-02-15 18:35 | NUR ---
RN CLOSING NOTES NO SIGNIFICANT CHANGE NOTED. PT A/O. NO RESPIRATORY DISTRESS NOTED. NO SOB NOTED. DENIES ANY PAIN. IVF INFUSING. FC IN PLACE. KEPT CLEAN AND DRY. KEPT COMFORTABLE. ALL NEEDS ATTENDED AND MET. CALL LIGHT WITHIN REACH. WILL ENDORSE FOR CONTINUITY OF CARE.
--- NOTE | 2019-02-15 19:15 | NUR ---
CLIENT RELATIONSHIP EXECUTIVE NOTE RECEIVED PT RESTING WITH HOB ELEVATED,AOX3, NEEDS REDIRECTING, ON ROOM AIR, NO S/SX OF RESPIRATORY OR CARDIAC DISTRESS, ON TELE SR, RAC #20G PATENT FLUSHING WELL, WITH NS AT 30ML/HR, SITE IS CLEAN AND DRY, F/C DRAINING TO GRAVITY YELLOW URINE, SAFETY MAINTAINED AT ALL TIMES, CALL LIGHT WITHIN REACH, BED IN LOW LOCKED POSITION WILL CONTINUE TO MONITOR FOR ANY CHANGES.
[2019-02-15] MEDS ORDERED: IV NS 0.9% 1,000 ML IV PRN (19:30)
[2019-02-15] MEDS: CEFTRIAXONE 1 G in IV D5W 50 ML IV SCH (21:02)
[2019-02-15] MEDS: SENNOSIDES 8.6 MG TABLET PO SCH (21:03)
[2019-02-16] VITALS (13 sets, daily range): BP systolic 107–148; BP diastolic 53–84
--- NOTE | 2019-02-16 03:06 | NUR ---
STRATEGIC ACCOUNT DIRECTOR NOTE PT RAC #20G IV DISLODGED, ATTEMPTED TO REINSERT X4 TIMES BY 3 RN, WILL CONTINUE TO ATTEMPT REINSERTION
[2019-02-16] MEDS: ACETAMINOPHEN 325 MG TABLET PO PRN ×3 (04:36→23:11)
[2019-02-16 05:07] LABS: BASOPHILS % (AUTO) 0.2 % (0.0-2.0); EOSINOPHILS % (AUTO) 2.4 % (0.0-6.0); HEMATOCRIT 27 % (33-45); HEMOGLOBIN 9.1 g/dL (11.5-14.8); LYMPHOCYTES % (AUTO) 10.4 % (20.0-44.0); MEAN CORPUSCULAR HGB CONC 33 g/dl (31.0-36.0); MEAN CORPUSCULAR VOLUME 90 fL (82-100); MONOCYTES # (AUTO) 0.6 /CMM (0.1-1.30); MONOCYTES % (AUTO) 5.9 % (2.0-12.0); NEUTROPHILS # (AUTO) 7.6 /CMM (1.8-8.9); NEUTROPHILS % (AUTO) 81.1 % (43.0-81.0); PLATELET COUNT (AUTO) 182 /CMM (150-450); RED BLOOD CELL COUNT(AUTO) 3.06 MIL/uL (4.0-5.2); WHITE BLOOD COUNT (AUTO) 9.4 K/uL (4.3-11.0)
[2019-02-16] MEDS: METOPROLOL TARTRATE 50 MG TABLET PO SCH ×3 (05:14→17:38)
[2019-02-16 05:17] LABS: CREATINE KINASE, TOTAL 44 U/L (26-192)
[2019-02-16 05:19] LABS: ALANINE AMINOTRANSFERASE 12 U/L (12-78); ALBUMIN 2.5 g/dL (3.4-5.0); ALKALINE PHOSPHATASE 127 U/L (46-116); ASPARTATE AMINOTRANSFERASE 15 U/L (15-37); BILIRUBIN,TOTAL 0.2 mg/dL (0.2-1.0); CALCIUM, SERUM 8.6 mg/dL (8.5-10.1); CARBON DIOXIDE 24 mmol/L (21-32); CHLORIDE 108 mmol/L (98-107); CREATININE 1.5 mg/dL (0.6-1.3); GLUCOSE 92 mg/dL (74-106); MAGNESIUM 1.8 mg/dL (1.8-2.4); PHOSPHORUS 4.4 mg/dL (2.5-4.9); POTASSIUM 4.1 mmol/L (3.5-5.1); SODIUM SERUM 142 mmol/L (136-145); TOTAL PROTEIN, SERUM 6.4 g/dL (6.4-8.2); UREA NITROGEN, BLOOD 27 mg/dL (7-18)
--- NOTE | 2019-02-16 07:05 | NUR ---
AIRWORTHINESS INSPECTOR CLOSING NOTE PT IS AOX2-3, RESTING WITH HOB ELEVATED, NO S/SX OF CARDIAC OR RESPIRATORY DISTRESS, SAFETY MAINTAINED, REPORT GIVEN TO AM RN.
[2019-02-16] MEDS: MULTIVIT W/MINERALS 1 TAB TABLET PO SCH (08:07)
[2019-02-16] MEDS: PANTOPRAZOLE 40 MG TABLET.DR PO SCH (08:07)
[2019-02-16] MEDS: THIAMINE HCL 100 MG TABLET PO SCH (08:07)
[2019-02-16] MEDS: ASPIRIN 325 MG TABLET PO SCH (08:07)
[2019-02-16] MEDS: ASCORBIC ACID 500 MG TABLET PO SCH (08:07)
[2019-02-16] MEDS: NICOTINE PATCH (14MG) 14 MG PATCH.TD24 TD SCH (08:07)
[2019-02-16] MEDS: FOLIC ACID 1 MG TABLET PO SCH (08:07)
[2019-02-16] MEDS: FUROSEMIDE 40 MG/4 ML VIAL IV SCH ×3 (08:07→15:26)
[2019-02-16] MEDS: ZINC SULFATE 220 MG CAPSULE PO SCH (08:07)
[2019-02-16] MEDS: GABAPENTIN 100 MG CAPSULE PO SCH ×2 (08:08→16:24)
[2019-02-16] MEDS: PROSOURCE / PROSTAT (PYXIS) 30 ML UDC PO SCH (08:08)
[2019-02-16] MEDS: ENOXAPARIN SODIUM 30 MG/0.3 ML DISP.SYRIN SQ SCH (08:11)
--- NOTE | 2019-02-16 08:47 | NUR ---
received pt from first line production supervisor, a/o x4, SR, on 2L 02 sat well, lungs partially congested, no edema, f/c good urine output, tolerates diet, v/s stable, no pain, pt turned and repositioned.
--- NOTE | 2019-02-16 12:00 | NUR ---
COPS NOTE PATIENT TRANSFERED FROM ICU FLOOR. ON ROOM AIR VITALS STABLE WNL. NO RESPIRATORY DISTRESS AT THIS TIME. PATIENT IS ALERT AND ORITNED X4. PATIENT IS PARTICIPATING IN HER CARE. NO WOUNDS, IV PATENT AND INTACT, VITALS STABLE. PER MD CONTINUE DIURESIS AND MONITOR PATIETN.
--- NOTE | 2019-02-16 12:40 | NUR ---
pt transferred to [facility], ACLS followed, stable.
[2019-02-16] MEDS: LORAZEPAM 1 MG TABLET PO PRN ×2 (16:40→23:53)
--- NOTE | 2019-02-16 18:57 | NUR ---
RN CLOSING NOTE PATIENT ALERT ORIENTED AND IN BED, PERSCRIBED 1MG PO XANAX FOR ANXIETY PATIENT TOLERATED WELL. OUTPUT WAS NOTED AT 1600 SINCE TRRANSFER FROM ICU TODAY. IVF WERE STOPPED PER MD ORDER. PATIENT IS ON NASAL CANNULA AND O2 IS AT 100% ON AND OFF OXYGEN. CONTINUE TO MONITOR PATIENT. SAFETY PRECAUTIONS IN PLACE, SIDE RAILS UP, CONTINUE TO MONITOR.
--- NOTE | 2019-02-16 20:10 | NUR ---
CREDIT UNION FIELD EXAMINER OPENING NOTES RECEIVED REPORT FROM MELIZA HENRY. PATIENT A/A/O X3, ABLE TO MAKE SOME NEEDS KNOWN & STATE PAIN. BREATHING EVEN & UNLABORED, TOLERATING O2 @ 2LPM VIA NC. DENIES ANY SOB OR DIFFICULTY BREATHING. ON TELE W/ SINUS RHYTHM, HR 60. LEFT AC IV #20 INTACT & PATENT W/ DRESSING CDI, SALINE LOCKED. MARTIN CATH DRAINING YELLOW URINE. DENIES ANY PAIN OR DISCOMFORT @ THIS TIME. SAFETY MEASURES IN PLACE W/ SIDE RAILS UP & BED ALARM ON. INSTRUCTED TO USE CALL LIGHT FOR ASSISTANCE. WILL CONTINUE TO MONITOR.
[2019-02-16] MEDS: CEFTRIAXONE 1 G in IV D5W 50 ML IV SCH (21:09)
[2019-02-16] MEDS: SENNOSIDES 8.6 MG TABLET PO SCH (21:10)
[2019-02-17] VITALS: BP 120/64
[2019-02-17] MEDS ORDERED: FUROSEMIDE 20 MG/2 ML VIAL IV ONE (00:30)
[2019-02-17] MEDS: ALBUTEROL FS 2.5 MG/3 ML VIAL.NEB NEB PRN ×2 (00:32→08:41)
[2019-02-17] MEDS: METOPROLOL TARTRATE 50 MG TABLET PO SCH ×3 (01:32→11:57)
[2019-02-17 04:00] VITALS: BP 135/71
--- NOTE | 2019-02-17 07:30 | NUR ---
RECRUITING OPERATIONS CONSULTANT INITIAL NOTES PT RECEIVED IN BED, A/OX3. C/O PAIN IN LEGS 06/13. ASSISTED PT TO REPOSITION. ON 4L NC. NO S/SX OF RESP DISTRESS. PT STATES, "I WILL TAKE OFF THE NC WHEN YOU LEAVE, I DONT LIKE TO WEAR IT." EDUCATED PT ON WEARING NC. ON TELE SR WITH ELEVATED T WAVES. BED IN LOCKED/LOWEST POSITION. CALL LIGHT IN REACH. WILL CONT TO MONITOR.
[2019-02-17 08:00] VITALS: BP_SYST 120; BP_SYST 126; BP_DIAS 61; BP_DIAS 79
[2019-02-17] MEDS: ASPIRIN 325 MG TABLET PO SCH (08:05)
[2019-02-17] MEDS: ZINC SULFATE 220 MG CAPSULE PO SCH (08:05)
[2019-02-17] MEDS: GABAPENTIN 100 MG CAPSULE PO SCH (08:06)
[2019-02-17] MEDS: THIAMINE HCL 100 MG TABLET PO SCH (08:06)
[2019-02-17] MEDS: MULTIVIT W/MINERALS 1 TAB TABLET PO SCH (08:06)
[2019-02-17] MEDS: NICOTINE PATCH (14MG) 14 MG PATCH.TD24 TD SCH (08:06)
[2019-02-17] MEDS: PANTOPRAZOLE 40 MG TABLET.DR PO SCH (08:06)
[2019-02-17] MEDS: FOLIC ACID 1 MG TABLET PO SCH (08:07)
[2019-02-17] MEDS: ASCORBIC ACID 500 MG TABLET PO SCH (08:07)
[2019-02-17] MEDS: ENOXAPARIN SODIUM 30 MG/0.3 ML DISP.SYRIN SQ SCH (08:15)
[2019-02-17] MEDS: PROSOURCE / PROSTAT (PYXIS) 30 ML UDC PO SCH (08:19)
[2019-02-17 11:11] LABS: *SPE A/G RATIO 0.9 (0.7-1.7); *SPE ALBUMIN 2.9 g/dL (2.9-4.4); *SPE ALPHA-1-GLOBULIN 0.3 g/dL (0.0-0.4); *SPE ALPHA-2-GLOBULIN 0.8 g/dL (0.4-1.0); *SPE BETA GLOBULIN 0.9 g/dL (0.7-1.3); *SPE GLOBULIN, TOTAL 3.1 g/dL (2.2-3.9); *SPE M-SPIKE Not Observed g/dL (Not Observed); *SPEGAMMA GLOBULIN 1.1 g/dL (0.4-1.8)
[2019-02-17] MEDS ORDERED: CEPH-570 PO (11:49)
[2019-02-17 12:35] LABS: ALANINE AMINOTRANSFERASE 13 U/L (12-78); ALBUMIN 2.7 g/dL (3.4-5.0); ALKALINE PHOSPHATASE 132 U/L (46-116); ASPARTATE AMINOTRANSFERASE 21 U/L (15-37); BILIRUBIN,TOTAL 0.2 mg/dL (0.2-1.0); CALCIUM, SERUM 8.7 mg/dL (8.5-10.1); CARBON DIOXIDE 23 mmol/L (21-32); CHLORIDE 102 mmol/L (98-107); CREATININE 1.6 mg/dL (0.6-1.3); GLUCOSE 143 mg/dL (74-106); MAGNESIUM 1.8 mg/dL (1.8-2.4); POTASSIUM 4.1 mmol/L (3.5-5.1); SODIUM SERUM 139 mmol/L (136-145); TOTAL PROTEIN, SERUM 7.3 g/dL (6.4-8.2); UREA NITROGEN, BLOOD 32 mg/dL (7-18)
[2019-02-17 13:21] LABS: PTH, INTACT 39 pg/mL (15-65)
[2019-02-17 14:22] LABS: BASOPHILS % (AUTO) 0.4 % (0.0-2.0); EOSINOPHILS % (AUTO) 3.8 % (0.0-6.0); HEMATOCRIT 30 % (33-45); LYMPHOCYTES # (AUTO) 0.8 /CMM (0.8-4.8); LYMPHOCYTES % (AUTO) 14.1 % (20.0-44.0); MEAN CORPUSCULAR HGB CONC 33 g/dl (31.0-36.0); MEAN CORPUSCULAR VOLUME 89 fL (82-100); MONOCYTES # (AUTO) 0.5 /CMM (0.1-1.30); MONOCYTES % (AUTO) 8.5 % (2.0-12.0); NEUTROPHILS # (AUTO) 4.3 /CMM (1.8-8.9); NEUTROPHILS % (AUTO) 73.2 % (43.0-81.0); PLATELET COUNT (AUTO) 196 /CMM (150-450); RED BLOOD CELL COUNT(AUTO) 3.39 MIL/uL (4.0-5.2); WHITE BLOOD COUNT (AUTO) 5.8 K/uL (4.3-11.0)
[2019-02-17 16:00] VITALS: BP 115/65
--- NOTE | 2019-02-17 16:42 | NUR ---
ms rn notes report called in to ruben mclain at [facility]. pt will be transferring to room 44a. picked up by ambulance crew. prescription and discharge instructions given to ambulance crew. f/c and iv removed by charge nurse soon. vs wnl. all needs attended to.
== END 2019-02-17 17:41 | DRG 917 ==
LOC: ER 00:58 → ICU 03:05 → TELE1 02-16 12:38 → MEDSG1 02-17 14:57
PROVIDERS: ADMIT Nurse Practitioner Acute Care
DX: T40.601A Poisoning by unspecified narcotics, accidental (unintentional), initial encounter (principal); J96.01 Acute respiratory failure with hypoxia; G92 Toxic encephalopathy; I21.A1 Myocardial infarction type 2; N17.0 Acute kidney failure with tubular necrosis; A41.9 Sepsis, unspecified organism; N39.0 Urinary tract infection, site not specified; E87.2 Acidosis; I95.9 Hypotension, unspecified; E86.0 Dehydration; D63.8 Anemia in other chronic diseases classified elsewhere; I50.9 Heart failure, unspecified; I11.0 Hypertensive heart disease with heart failure; I25.10 Atherosclerotic heart disease of native coronary artery without angina pectoris; I25.2 Old myocardial infarction; J44.9 Chronic obstructive pulmonary disease, unspecified; M19.90 Unspecified osteoarthritis, unspecified site; G89.29 Other chronic pain; F41.9 Anxiety disorder, unspecified; F17.210 Nicotine dependence, cigarettes, uncomplicated; M54.9 Dorsalgia, unspecified; Z86.19 Personal history of other infectious and parasitic diseases; Z88.0 Allergy status to penicillin; Z71.6 Tobacco abuse counseling; F19.11 Other psychoactive substance abuse, in remission; B96.1 Klebsiella pneumoniae [K. pneumoniae] as the cause of diseases classified elsewhere; Y92.129 Unspecified place in nursing home as the place of occurrence of the external cause
CPT/HCPCS: 36415; 36600; 70450-TC; 71045-TC; 76770-TC; 80048-TC; 80053-TC; 80061-TC; 80076-TC; 80305; 81000-TC; 82140-TC; 82550-TC; 82570-TC; 82803-TC; 82962-TC; 83605-TC; 83735-TC; 83880; 83970; 84100-TC; 84155; 84155-TC; 84165; 84300-TC; 84439-TC; 84443-TC; 84484-TC; 85025-TC; 85730-TC; 87040-TC; 87081-TC; 87086-TC; 87186-TC; 97116-TC; 97530-TC; G0378; G0480; J0696; J1650; J1940; J2310; J2405; J7030; J7040; J7060

== ENCOUNTER 2019-04-09 14:12 | Inpatient (IN) | payer MEDICARE, MEDICAID ==
[~2019-04-09] VITALS: Ht 154.9 cm; Wt 63.6 kg
[~2019-04-09 14:12] MED LIST changes: +AMIN30LI2 PO; +ASCO500T9 PO; +BISA-79 PR; +CEPH-570 PO; +ENOX40DI SQ; +GABA-532 PO; +MAGN2400 PO; +METO25TA6 PO; +MULT-213 PO; +NA P133E RC; +SENN-168 PO; +TIZA4TAB5 PO; +TYL2T PO; +ZINC220T PO
--- NOTE | 2019-04-09 14:25 | NUR ---
PT CHILO FROM [facility] FOR ALOC; MORE ALTERED THAN USUAL; PT AAOX1, PT ON MONITOR, VSS, -SOB, PENDING MD MORGAN
[2019-04-09] MEDS ORDERED: BUPR8TAB4 SL (14:27)
[2019-04-09] MEDS ORDERED: ASPI-992 PO (14:27)
[2019-04-09] MEDS ORDERED: NALO4SPR NS (14:27)
[2019-04-09] MEDS ORDERED: ACET-2605 PO (14:27)
[2019-04-09 15:14] LABS: BASOPHILS % (AUTO) 0.4 % (0.0-2.0); EOSINOPHILS % (AUTO) 0.1 % (0.0-6.0); HEMATOCRIT 25 % (33-45); LYMPHOCYTES # (AUTO) 0.8 /CMM (0.8-4.8); MEAN CORPUSCULAR HGB CONC 32 g/dl (31.0-36.0); MEAN CORPUSCULAR VOLUME 95 fL (82-100); MONOCYTES # (AUTO) 0.9 /CMM (0.1-1.30); MONOCYTES % (AUTO) 7.5 % (2.0-12.0); NEUTROPHILS # (AUTO) 10.2 /CMM (1.8-8.9); PLATELET COUNT (AUTO) 173 /CMM (150-450); RED BLOOD CELL COUNT(AUTO) 2.62 MIL/uL (4.0-5.2)
[2019-04-09 15:26] LABS: CALCIUM, SERUM 9.2 mg/dL (8.5-10.1); CARBON DIOXIDE 26 mmol/L (21-32); CHLORIDE 107 mmol/L (98-107); CREATININE 2.4 mg/dL (0.6-1.3); GLUCOSE 136 mg/dL (74-106); POTASSIUM 4.1 mmol/L (3.5-5.1); SODIUM SERUM 144 mmol/L (136-145); UREA NITROGEN, BLOOD 53 mg/dL (7-18)
[2019-04-09 15:31] LABS: APPEARANCE,URINE Cloudy (CLEAR); BILIRUBIN,URINE Negative (NEGATIVE); BLOOD, URINE Moderate Ery/uL (NEGATIVE); COLOR,URINE Yellow (YELLOW); KETONES,URINE Negative (NEGATIVE); LEUKOCYTE ESTERASE ,URINE Large (NEGATIVE); NITRITE, URINE Negative (NEGATIVE); PH,URINE 5.5 (5.0-8.0); PROTEIN,URINE 100 mg/dl (NEGATIVE); UGLUCOSE Negative (NEGATIVE); UROBILINOGEN,URINE 0.2 EU/dL (0.2)
[2019-04-09 15:42] LABS: ALANINE AMINOTRANSFERASE 8 U/L (12-78); ALBUMIN 2.9 g/dL (3.4-5.0); ALKALINE PHOSPHATASE 69 U/L (46-116); ASPARTATE AMINOTRANSFERASE 17 U/L (15-37); BILIRUBIN,TOTAL 0.2 mg/dL (0.2-1.0); TOTAL PROTEIN, SERUM 7.1 g/dL (6.4-8.2)
[2019-04-09 15:48] LABS: BACTERIA,URINE Many /HPF (None Seen); SQUAMOUS EPITHELIAL CELL,UR Few /HPF (None Seen); WBC,URINE 21-50 /HPF (0-3); YEAST,URINE Many /HPF (None Seen)
[2019-04-09 15:49] LABS: URINE AMORPHOUS URATE Many /HPF (None Seen)
--- NOTE | 2019-04-09 16:09 | NUR ---
CALLED [facility]. DIMENSIONAL INTEGRATION ENGINEER WAS PAGED
[2019-04-09] MEDS ORDERED: CEFTRIAXONE 1GM BAG (ER ONLY) 1 GM/50 ML PIGGYBACK IV ONE (16:30)
--- NOTE | 2019-04-09 16:34 | NUR ---
CALLED [facility] FOR MS BED
--- NOTE | 2019-04-09 16:51 | NUR ---
MS BED 202 GIVEN
[2019-04-09] MEDS ORDERED: CEFTRIAXONE 1GM BAG (ER ONLY) 50 ML IV ONE (16:59)
[2019-04-09] MEDS ORDERED: ACETAMINOPHEN 325 MG TABLET PO PRN (17:30)
[2019-04-09] MEDS ORDERED: Z GUARD REMEDY 2 OZ OINT TP PRN (17:30)
[2019-04-09] MEDS ORDERED: MAG HYDROX/AL HYDROX/SIMETH 30 ML UDC PO PRN (17:30)
[2019-04-09] MEDS ORDERED: ONDANSETRON HCL/PF 4 MG/2 ML VIAL IVP PRN (17:30)
[2019-04-09] MEDS ORDERED: MAGNESIUM HYDROXIDE 30 ML UDC PO PRN (17:30)
[2019-04-09] MEDS ORDERED: HYDROCODONE/APAP 5/325MG 1 EACH TABLET PO PRN (17:30)
--- NOTE | 2019-04-09 17:51 | NUR ---
REPORT GIVEN TO ELAINE GTZ FOR ELIZABETH; PT WILL BE TRANSPORTED TO 3RD FLOOR VIA ACLS PROTOCOL
[2019-04-09 18:00] VITALS: BP 140/66
--- NOTE | 2019-04-09 18:30 | NUR ---
SUBSTANCE ABUSE NURSE NOTES PATIENT ADMITTED FROM ER FEMALE 69Y/OLD TELE ON DX OF UTI. TELE MONITOR ON SR-84. PATIENT A /O X1, CONFUSED,BUT REDIRECTABLE. V/S TAKEN T-100.9, BP-140/66, R-20, P-77, 02-99 NC 2L. ADMINISTERED TYLENOL 650 MG PO, AND APPLIED COLD APPLICANTS. START IV FLUID 1/2 NS AT 75 ML/HR RIGHT FA INTACT. PATIENT REFUSED PAIN AT THIS TIME . PATIENT INCONTINENT. ENDORSED ONCOMING NURSE FOLLOW PLAN OF CARE , AND ADMISSION COMPUTER QUESTIONS.
[2019-04-09] MEDS: IV 1/2NS 1000 ML 1,000 ML IV PRN (18:59)
--- NOTE | 2019-04-09 19:46 | NUR ---
RN OPENING NOTES RECEIVED FROM HUA RN, PT IN BED,AWAKE ALERT DISORIENTED, APPEARS NON VERBAL. BREATHING EVEN AND UNLABORED ON 2L O2 NC. IN NO APPARENT PAIN OR DISCOMFORT AT THIS TIMES. IV ACCESS ON THE R FA 20G, PATENT AND FLUSHING BED IN LOWEST LOCKED POSITION, WILL CONTINUE TO MONITOR FREQUENTLY. ADMISSION COMPLETED, PT NON VERBAL, NO FAMILY, LITTLE INFORMATION OBTAINED FROM SNF
[2019-04-09 19:57] VITALS: BP 100/56
[2019-04-09 20:00] VITALS: BP 100/56
[2019-04-09] MEDS: ZOLPIDEM TARTRATE 5 MG TABLET PO PRN (21:59)
--- NOTE | 2019-04-10 06:13 | NUR ---
RN MS CLOSING NOTES PT REMAINS IN BED,AWAKE ALERT ORIENTED X2, NO VERBALLY RESPONSIVE, APPEARS WORRIED ABOUT NOT BEING ABLE TO REMEMBER WHERE SHE CAME FROM. BREATHING EVEN AND UNLABORED ON 2L O2 NC. IN NO APPARENT PAIN AT THIS TIMES. IV ACCESS ON THE R FA 20G, PATENT AND FLUSHING BED IN LOWEST LOCKED POSITION, WILL ENDORSE TO DAY NURSE FOR ELIZABETH
[2019-04-10 06:28] LABS: BASOPHILS % (AUTO) 0.3 % (0.0-2.0); EOSINOPHILS % (AUTO) 1.9 % (0.0-6.0); HEMATOCRIT 23 % (33-45); HEMOGLOBIN 7.5 g/dL (11.5-14.8); LYMPHOCYTES # (AUTO) 1.1 /CMM (0.8-4.8); LYMPHOCYTES % (AUTO) 12.2 % (20.0-44.0); MEAN CORPUSCULAR HGB CONC 33 g/dl (31.0-36.0); MEAN CORPUSCULAR VOLUME 92 fL (82-100); MONOCYTES # (AUTO) 0.9 /CMM (0.1-1.30); MONOCYTES % (AUTO) 9.8 % (2.0-12.0); NEUTROPHILS # (AUTO) 6.7 /CMM (1.8-8.9); NEUTROPHILS % (AUTO) 75.8 % (43.0-81.0); PLATELET COUNT (AUTO) 163 /CMM (150-450); RED BLOOD CELL COUNT(AUTO) 2.46 MIL/uL (4.0-5.2); WHITE BLOOD COUNT (AUTO) 8.9 K/uL (4.3-11.0)
[2019-04-10 06:59] LABS: CALCIUM, SERUM 8.7 mg/dL (8.5-10.1); CARBON DIOXIDE 23 mmol/L (21-32); CHLORIDE 104 mmol/L (98-107); GLUCOSE 95 mg/dL (74-106); MAGNESIUM 1.8 mg/dL (1.8-2.4); PHOSPHORUS 3.5 mg/dL (2.5-4.9); POTASSIUM 3.6 mmol/L (3.5-5.1); SODIUM SERUM 139 mmol/L (136-145); UREA NITROGEN, BLOOD 47 mg/dL (7-18)
--- NOTE | 2019-04-10 07:53 | NUR ---
MS RN OPENING NOTES: RECEIVED PATIENT ASLEEP IN BED IN NO ACUTE DISTRESS. IV ACCESS ON RIGHT FA #20, INTACT AND FLUSHING. SAFETY MEASURES IN PLACE. BED KEPT IN LOW, LOCKED POSITION, AND SIDE RAILS X 2UP. CALL LIGHT WITHIN EASY REACH. WILL CONTINUE TO MONITOR PATIENT ACCORDINGLY.
[2019-04-10 08:50] VITALS: BP 113/63
[2019-04-10] MEDS ORDERED: NALOXONE HCL 4 MG NS SCH (09:00)
[2019-04-10] MEDS ORDERED: TIZANIDINE HCL 4 MG TABLET PO PRN (09:00)
[2019-04-10] MEDS ORDERED: BUPRENORPHINE HCL 4 MG SL SCH (09:00)
[2019-04-10] MEDS ORDERED: NA PHOS,M-B/NA PHOS,DI-BA 1 EA ENEMA RC PRN (09:00)
[2019-04-10] MEDS: PROSOURCE / PROSTAT (PYXIS) 30 ML UDC PO SCH (09:03)
[2019-04-10] MEDS: FUROSEMIDE 20 MG TABLET PO SCH (09:03)
[2019-04-10] MEDS: MULTIVIT W/MINERALS 1 TAB TABLET PO SCH (09:04)
[2019-04-10] MEDS: HYDROCHLOROTHIAZIDE 25 MG TABLET PO SCH (09:04)
[2019-04-10] MEDS: LORAZEPAM 1 MG TABLET PO SCH ×2 (09:04→17:03)
[2019-04-10] MEDS: METOPROLOL TARTRATE 25 MG TABLET PO SCH ×2 (09:04→17:47)
[2019-04-10] MEDS: GABAPENTIN 100 MG CAPSULE PO SCH ×2 (09:04→17:03)
[2019-04-10] MEDS: THIAMINE HCL 100 MG TABLET PO SCH (09:04)
[2019-04-10] MEDS: FOLIC ACID 1 MG TABLET PO SCH (09:04)
[2019-04-10] MEDS: ASPIRIN 325 MG TABLET PO SCH (09:04)
[2019-04-10] MEDS: ZINC SULFATE 220 MG CAPSULE PO SCH (09:05)
[2019-04-10] MEDS: POTASSIUM CHLORIDE 10 MEQ TABLET.SA PO SCH (09:05)
[2019-04-10] MEDS: ASCORBIC ACID 500 MG TABLET PO SCH (09:06)
--- NOTE | 2019-04-10 11:24 | NUR ---
MS RN NOTES PATIENT NOTED WITH NON-BLANCHABLE REDNESS ON BILATERAL HEELS, SKIN INTACT. PATIENT ASSISTED TO A COMFORTABLE POSITION AND OFFLOADED HEELS BUT PATIENT NOTED WITH EPISODES OF KICKING PILLOW OFF. APPLIED MEPILEX TO BOTH HEELS AND COVERED WITH SOCKS. REINFORCED TEACHING TO PATIENT AND VERBALIZED UNDERSTANDING. OFFLOADED HEELS WITH PILLOWS. WILL CONTINUE TO MONITOR
[2019-04-10] MEDS: IV 1/2NS 1000 ML 1,000 ML IV PRN (13:50)
--- NOTE | 2019-04-10 15:00 | NUR ---
MS RN NOTES URINE COLLECTED AND SEND TO LABS.
[2019-04-10 16:04] VITALS: BP 134/68
[2019-04-10] MEDS: CEFTRIAXONE 1 G in IV D5W 50 ML IV SCH (17:02)
[2019-04-10 17:03] LABS: APPEARANCE,URINE SL CLOUDY (CLEAR); BILIRUBIN,URINE NEGATIVE (NEGATIVE); BLOOD, URINE 1+ Ery/uL (NEGATIVE); COLOR,URINE YELLOW (YELLOW); KETONES,URINE NEGATIVE (NEGATIVE); LEUKOCYTE ESTERASE ,URINE TRACE (NEGATIVE); NITRITE, URINE NEGATIVE (NEGATIVE); PROTEIN,URINE NEGATIVE (NEGATIVE); UGLUCOSE NEGATIVE (NEGATIVE); UROBILINOGEN,URINE 0.2 EU/dL (0.2)
[2019-04-10 17:17] LABS: BACTERIA,URINE Few /HPF (None Seen); SQUAMOUS EPITHELIAL CELL,UR Moderate /HPF (None Seen); WBC,URINE 21-50 /HPF (0-3)
[2019-04-10 17:18] LABS: YEAST,URINE Few /HPF (None Seen)
[2019-04-10 17:53] LABS: EOSINOPHIL,URINE None Seen
--- NOTE | 2019-04-10 19:20 | NUR ---
MS RN CLOSING NOTES PATIENT AWAKE RESTING IN BED WITH MODERATE HIGH BACK REST POSITION. A/O X2. NO SOB NOTED. IV ACCESS ON RIGHT FA #20 WITH 0.45% NS @75 ML/HR, PATENT AND INTACT, INFUSING WELL, NO S/S OF INFILTRATION NOTED. ALL NURSING NEEDS AND CARE ATTENDED WELL. SAFETY MEASURES KEPT IN PLACE. BED IN LOW LOCKED POSITION WITH SIDE RAILS X2. BEDSIDE TABLE AND CALL LIGHT WITHIN REACH. ENDORSED TO PUBLIC FINANCE SPECIALIST NURSE FOR [facility].
--- NOTE | 2019-04-10 19:20 | NUR ---
CHANGE OF SHIFT REPORT Patient in bed, sleeping arouses easily. On low flow oxygen at 2L via NC, no evidence of shortness of breath. IVF infusing. Heels elevated with pillows, will cont repositioning. Bed alarm on and audible at all times, maintained safety.
[2019-04-10 20:00] VITALS: BP 107/58
[2019-04-10 20:13] VITALS: BP 107/58
[2019-04-10 20:37] LABS: CREATININE, URINE 43.7 MG/DL (30.0-125.0)
[2019-04-10 20:51] LABS: URINE TOTAL PROTEIN 25.4 mg/dL (0-11.9)
[2019-04-10] MEDS: SENNOSIDES 8.6 MG TABLET PO SCH (21:25)
[2019-04-11] MEDS: IV 1/2NS 1000 ML 1,000 ML IV PRN (04:42)
--- NOTE | 2019-04-11 06:24 | NUR ---
END OF SHIFT REPORT Patient in bed, stable oxygen saturation on RA. Uncooperative and irritable during hygiene care, patient is A/O x2. IV peripheral line infiltrated, line removed. Attempted to re insert new peripheral IV line, patient refused, education provided, patient declined. On IV abx as scheduled. Stool OB pending, unable to collect, no BM this shift. Voiding well. Maintained safety, fall precaution. Will endorse to oncoming RN.
--- NOTE | 2019-04-11 07:57 | NUR ---
MS RN OPENING NOTES PATIENT AWAKE RESTING IN BED WITH MODERATE HIGH BACK REST POSITION. A/O X2. ON OXYGEN 2LPM VIA NC. NO SOB NOTED. NO COMPLAIN OF PAIN OR DISCOMFORT AT THIS TIME. SAFETY MEASURES KEPT IN PLACE. BED IN LOW LOCKED POSITION WITH SIDE RAILS X2. BEDSIDE TABLE AND CALL LIGHT WITHIN REACH. WILL CONTINUE TO MONITOR PATIENT ACCORDINGLY.
[2019-04-11 08:00] VITALS: BP 116/62
[2019-04-11] MEDS: POTASSIUM CHLORIDE 10 MEQ TABLET.SA PO SCH (08:58)
[2019-04-11] MEDS: LORAZEPAM 1 MG TABLET PO SCH ×2 (08:58→16:40)
[2019-04-11] MEDS: ASPIRIN 325 MG TABLET PO SCH (08:58)
[2019-04-11] MEDS: MULTIVIT W/MINERALS 1 TAB TABLET PO SCH (08:59)
[2019-04-11] MEDS: GABAPENTIN 100 MG CAPSULE PO SCH ×2 (08:59→16:40)
[2019-04-11] MEDS: ASCORBIC ACID 500 MG TABLET PO SCH (08:59)
[2019-04-11] MEDS: ZINC SULFATE 220 MG CAPSULE PO SCH (08:59)
[2019-04-11] MEDS: FOLIC ACID 1 MG TABLET PO SCH (08:59)
[2019-04-11] MEDS: THIAMINE HCL 100 MG TABLET PO SCH (08:59)
[2019-04-11] MEDS: FUROSEMIDE 20 MG TABLET PO SCH (09:00)
[2019-04-11] MEDS: HYDROCHLOROTHIAZIDE 25 MG TABLET PO SCH (09:00)
[2019-04-11] MEDS: METOPROLOL TARTRATE 25 MG TABLET PO SCH ×2 (09:00→16:43)
[2019-04-11] MEDS: PROSOURCE / PROSTAT (PYXIS) 30 ML UDC PO SCH (09:04)
[2019-04-11] MEDS ORDERED: SOD FERRIC GLUC 125 MG in IV NS 0.9% 100 ML IV SCH (14:00)
--- NOTE | 2019-04-11 14:39 | NUR ---
MS RN NOTES PATIENT REFUSING TO HAVE BLOOD DRAWN FOR LAB. RISKS AND BENEFITS EXPLAINED BUT TO NO AVAIL. SPOKE WITH UTILITY SPRAY OPERATOR AND PER UTILITY SPRAY OPERATOR, PATIENT HAS REFUSED BLOOD DRAW X 3. OMAYRA CAVAZOS NP PRESENT AT UNIT AND MADE AWARE. NO NEW ORDERS AT THIS TIME. WILL CONTINUE TO MONITOR
[2019-04-11 16:00] VITALS: BP 115/66
[2019-04-11] MEDS: CEFTRIAXONE 1 G in IV D5W 50 ML IV SCH (16:36)
--- NOTE | 2019-04-11 19:12 | NUR ---
MS RN CLOSING NOTES PATIENT AWAKE RESTING IN BED WITH MODERATE HIGH BACK REST POSITION. A/O X2. NO SOB NOTED. IV ACCESS ON RIGHT AC WITH 1/2 NS @75 ML/HR, PATENT AND INTACT, INFUSING WELL, NO S/S OF INFILTRATION NOTED. ALL NURSING NEEDS AND CARE ATTENDED WELL. SAFETY MEASURES KEPT IN PLACE. BED IN LOW LOCKED POSITION WITH SIDE RAILS X2. BEDSIDE TABLE AND CALL LIGHT WITHIN REACH. ENDORSED TO BRAND RECORDER NURSE FOR ELIZABETH.
--- NOTE | 2019-04-11 19:15 | NUR ---
CHANGE OF SHIFT REPORT Patient in bed, awake A/O x 2. On RA, no evidence of shortness of breath. IVF infusing. Refused lab today per report. Bed alarm on and audible at all times, maintained safety.
[2019-04-11 20:00] VITALS: BP 118/66
--- NOTE | 2019-04-11 20:00 | NUR ---
DISLODGE IV Peripheral IV line dislodged. Patient is A/O x2 with intermittent confusion. Will reinsert new line.
[2019-04-11] MEDS: SENNOSIDES 8.6 MG TABLET PO SCH (22:02)
[2019-04-11] MEDS: ZOLPIDEM TARTRATE 5 MG TABLET PO PRN (22:58)
--- NOTE | 2019-04-11 22:58 | NUR ---
REINSERT NEW PERIPHERAL IV LINE Inserted new peripheral IV line in left wrist x 2 attempt, patient tolerated well.
--- NOTE | 2019-04-12 03:10 | NUR ---
PERIPHERAL IV LINE PULLED OUT Gauze applied to left wrist to prevent further bleeding. Patient declined pulling out IV peripheral catheter. Education declined. Will cont to monitor. Maintained safety.
--- NOTE | 2019-04-12 06:19 | NUR ---
END OF SHIFT REPORT Patient in bed, stable oxygen saturation on RA. A/O x2 with intermittent confusion. Behavior crying, denies pain when asked. Awaiting Psych eval. Uncooperative and irritable during hygiene care. On IV abx as scheduled with no adverse side effect. Stool OB pending, unable to collect, no BM this shift. Voiding well. No IV peripheral line, patient pulled out x2 this shift, refused insertion, declined education. Maintained safety, will endorse to oncoming RN.
--- NOTE | 2019-04-12 07:30 | NUR ---
RN MS NOTES PT IN BED, AWAKE, ALERT, VERBALLY RESPONSIVE, NO COMPLAINT OF PAIN, BREATHING PATTERN NORMAL, CALL LIGHT WITHIN REACH, KEPT WARM AND COMFORTABLE IN BED.
[2019-04-12 08:00] VITALS: BP 128/74
[2019-04-12 08:07] LABS: BASOPHILS % (AUTO) 0.4 % (0.0-2.0); EOSINOPHILS % (AUTO) 6.4 % (0.0-6.0); HEMATOCRIT 24 % (33-45); LYMPHOCYTES # (AUTO) 1.1 /CMM (0.8-4.8); LYMPHOCYTES % (AUTO) 18.2 % (20.0-44.0); MEAN CORPUSCULAR HGB CONC 34 g/dl (31.0-36.0); MEAN CORPUSCULAR VOLUME 90 fL (82-100); MONOCYTES # (AUTO) 0.6 /CMM (0.1-1.30); MONOCYTES % (AUTO) 9.7 % (2.0-12.0); NEUTROPHILS # (AUTO) 3.8 /CMM (1.8-8.9); NEUTROPHILS % (AUTO) 65.3 % (43.0-81.0); PLATELET COUNT (AUTO) 201 /CMM (150-450); RED BLOOD CELL COUNT(AUTO) 2.64 MIL/uL (4.0-5.2); WHITE BLOOD COUNT (AUTO) 5.9 K/uL (4.3-11.0)
[2019-04-12 08:16] LABS: CALCIUM, SERUM 8.7 mg/dL (8.5-10.1); CARBON DIOXIDE 24 mmol/L (21-32); CHLORIDE 103 mmol/L (98-107); CREATININE 1.4 mg/dL (0.6-1.3); GLUCOSE 76 mg/dL (74-106); PHOSPHORUS 3.8 mg/dL (2.5-4.9); POTASSIUM 3.8 mmol/L (3.5-5.1); SODIUM SERUM 138 mmol/L (136-145); UREA NITROGEN, BLOOD 41 mg/dL (7-18)
[2019-04-12] MEDS: THIAMINE HCL 100 MG TABLET PO SCH (08:27)
[2019-04-12] MEDS: MULTIVIT W/MINERALS 1 TAB TABLET PO SCH (08:29)
[2019-04-12] MEDS: METOPROLOL TARTRATE 25 MG TABLET PO SCH (08:30)
[2019-04-12] MEDS: LORAZEPAM 1 MG TABLET PO SCH (08:30)
[2019-04-12] MEDS: FOLIC ACID 1 MG TABLET PO SCH (08:30)
[2019-04-12] MEDS: FUROSEMIDE 20 MG TABLET PO SCH (08:30)
[2019-04-12] MEDS: ASCORBIC ACID 500 MG TABLET PO SCH (08:30)
[2019-04-12] MEDS: POTASSIUM CHLORIDE 10 MEQ TABLET.SA PO SCH (08:30)
[2019-04-12] MEDS: ZINC SULFATE 220 MG CAPSULE PO SCH (08:30)
[2019-04-12] MEDS: GABAPENTIN 100 MG CAPSULE PO SCH (08:30)
[2019-04-12 08:31] VITALS: BP 128/74
[2019-04-12] MEDS: HYDROCHLOROTHIAZIDE 25 MG TABLET PO SCH (08:31)
[2019-04-12] MEDS: ASPIRIN 325 MG TABLET PO SCH (08:31)
[2019-04-12] MEDS: PROSOURCE / PROSTAT (PYXIS) 30 ML UDC PO SCH (09:02)
[2019-04-12 09:07] LABS: IRON, SERUM 169 ug/dl (50-175); TOTAL IRON BINDING CAPACITY 253 ug/dl (250-450)
[2019-04-12 10:58] LABS: FERRITIN 218 ng/mL (8-388)
--- NOTE | 2019-04-12 12:36 | NUR ---
RN MS NOTES PT IN BED, RESTING, ALERT AND VERBALLY RESPONSIVE, NO COMPLAINT OF PAIN, RESPIRATIONS NORMAL, PT SEEN BY DR. MCDERMOTT, DISCHARGE ORDER GIVEN, PT INFORMED, REPORT GIVEN TO YG HENRY OF [facility], LEFT MESSAGE TO PT'S MR. KRISTI ORTIZ AT [phone], AWAITING AMBULANCE SERVICE FOR PT TRANSPORT.
--- NOTE | 2019-04-12 13:35 | NUR ---
RN MS NOTES PT IN BED, AWAKE, ALERT, VERBALLY RESPONSIVE, NOT IN PAIN OR DISTRESS, CALL LIGHT WITHIN REACH, PICKED UP BY 2 AMBULANCE PERSONNEL, LEFT VIA GUERNEY IN STABLE CONDITION.
--- NOTE | 2019-04-14 08:13 | NUR ---
ECHO REPORT IS DONE AWAITING FOR REPORT TO CROSS OVER TO [facility].
== END 2019-04-12 13:35 | DRG 871 ==
LOC: ER 14:18 → TELE-TD 16:56 → TELE 17:18 → MED 20:31
PROVIDERS: ADMIT Student in an Organized Health Care Education/Training Program; ATTEND Internal Medicine
DX: A41.9 Sepsis, unspecified organism (principal); N17.0 Acute kidney failure with tubular necrosis; I21.A1 Myocardial infarction type 2; G93.41 Metabolic encephalopathy; E44.0 Moderate protein-calorie malnutrition; B37.49 Other urogenital candidiasis; I13.0 Hypertensive heart and chronic kidney disease with heart failure and stage 1 through stage 4 chronic kidney disease, or unspecified chronic kidney disease; J44.9 Chronic obstructive pulmonary disease, unspecified; D63.8 Anemia in other chronic diseases classified elsewhere; F17.210 Nicotine dependence, cigarettes, uncomplicated; I25.10 Atherosclerotic heart disease of native coronary artery without angina pectoris; I50.9 Heart failure, unspecified; Z79.82 Long term (current) use of aspirin; N18.9 Chronic kidney disease, unspecified; M19.90 Unspecified osteoarthritis, unspecified site; G89.29 Other chronic pain; F41.9 Anxiety disorder, unspecified; I95.9 Hypotension, unspecified; Z86.19 Personal history of other infectious and parasitic diseases; E88.09 Other disorders of plasma-protein metabolism, not elsewhere classified; Z68.26 Body mass index [BMI] 26.0-26.9, adult; B95.5 Unspecified streptococcus as the cause of diseases classified elsewhere; I25.2 Old myocardial infarction; R40.2142 Coma scale, eyes open, spontaneous, at arrival to emergency department; R40.2242 Coma scale, best verbal response, confused conversation, at arrival to emergency department; R40.2362 Coma scale, best motor response, obeys commands, at arrival to emergency department
CPT/HCPCS: 36415; 71045-TC; 76770-TC; 80048-TC; 80076-TC; 81000-TC; 82570-TC; 82728-TC; 83540-TC; 83605-TC; 83735-TC; 84100-TC; 84155-TC; 84300-TC; 84484-TC; 85025-TC; 85730-TC; 87040-TC; 87081-TC; 87086-TC; 87186-TC; 93307-TC; 97110-TC; 97116-TC; 97530-TC; G0378; J0696; J2916; J3490; J7030; J7060

== ENCOUNTER 2019-05-19 18:47 | Inpatient (IN) | payer MEDICARE, MEDICAID ==
--- NOTE | 2019-05-18 19:30 | NUR ---
RECEIVED PATIENT UP IN CHAIR. AO X 2, ABLE TO MAKE NEEDS KNOWN. NO ACUTE DISTRESS NOTED. DENIES ANY PAIN AT THIS TIME. IV SITES PATENT, INTACT; FLUSHED. SAFETY REMINDERS GIVEN. ON LOW BED WITH BILATERAL UPPER SIDE RAILS UP. CALL BARTHOLOMEW WITHIN EASY REACH. WILL CONTINUE TO MONITOR. Addendum: 05/22/19 at 0632 by ALNI PRESCOTT RN WRONG DATE;NOTE IS FOR 05/21/19
[~2019-05-19] VITALS: Ht 165.1 cm; Wt 65.8 kg
[~2019-05-19 18:47] MED LIST changes: +ACET-2605 PO; +BUPR8TAB4 SL; -CEPH-570 PO; -ENOX40DI SQ; -METO50TA16 PO; +NALO4SPR NS; -ZINC220T PO; +ZINC220T4 PO
[2019-05-19] MEDS ORDERED: IV NS 0.9% 500 ML BAG IV ONE (19:00)
[2019-05-19] MEDS ORDERED: CEFTRIAXONE 1GM BAG (ER ONLY) 1 GM/50 ML PIGGYBACK IV ONE (19:00)
--- NOTE | 2019-05-19 19:05 | NUR ---
Patient brought in from [facility] due to "altered more than usual" Patient placed in bed, confused, low o2 sat 89-91%, applied o2 at 2lpm via nc. No sob noted. Attached to the monitor, iv line established on left hand g20, blood drawn and sent to lab.
[2019-05-19] MEDS ORDERED: CEFTRIAXONE 1GM BAG (ER ONLY) 50 ML IV ONE (19:08)
[2019-05-19 19:09] LABS: BASOPHILS # (AUTO) 0.1 /CMM (0.0-0.2); BASOPHILS % (AUTO) 0.6 % (0.0-2.0); EOSINOPHILS % (AUTO) 1.7 % (0.0-6.0); HEMATOCRIT 28 % (33-45); HEMOGLOBIN 9.3 g/dL (11.5-14.8); LYMPHOCYTES # (AUTO) 1.5 /CMM (0.8-4.8); LYMPHOCYTES % (AUTO) 15.9 % (20.0-44.0); MEAN CORPUSCULAR HGB CONC 34 g/dl (31.0-36.0); MEAN CORPUSCULAR VOLUME 92 fL (82-100); MONOCYTES # (AUTO) 0.9 /CMM (0.1-1.30); MONOCYTES % (AUTO) 9.2 % (2.0-12.0); NEUTROPHILS # (AUTO) 6.7 /CMM (1.8-8.9); NEUTROPHILS % (AUTO) 72.6 % (43.0-81.0); PLATELET COUNT (AUTO) 151 /CMM (150-450); RED BLOOD CELL COUNT(AUTO) 3.01 MIL/uL (4.0-5.2); WHITE BLOOD COUNT (AUTO) 9.3 K/uL (4.3-11.0)
[2019-05-19 19:19] LABS: APPEARANCE,URINE Clear (CLEAR); BILIRUBIN,URINE Negative (NEGATIVE); BLOOD, URINE Trace-intact Ery/uL (NEGATIVE); COLOR,URINE Yellow (YELLOW); KETONES,URINE Negative (NEGATIVE); LEUKOCYTE ESTERASE ,URINE Small (NEGATIVE); NITRITE, URINE Negative (NEGATIVE); PROTEIN,URINE Negative (NEGATIVE); UGLUCOSE Negative (NEGATIVE); UROBILINOGEN,URINE 0.2 EU/dL (0.2)
[2019-05-19 19:22] LABS: CALCIUM, SERUM 9.3 mg/dL (8.5-10.1); CARBON DIOXIDE 28 mmol/L (21-32); CHLORIDE 101 mmol/L (98-107); CREATININE 2.2 mg/dL (0.6-1.3); GLUCOSE 97 mg/dL (74-106); POTASSIUM 4.4 mmol/L (3.5-5.1); SODIUM SERUM 139 mmol/L (136-145); UREA NITROGEN, BLOOD 46 mg/dL (7-18)
[2019-05-19 19:35] LABS: ALANINE AMINOTRANSFERASE 10 U/L (12-78); ALBUMIN 3.6 g/dL (3.4-5.0); ALKALINE PHOSPHATASE 84 U/L (46-116); ASPARTATE AMINOTRANSFERASE 14 U/L (15-37); B-TYPE NATRIURETIC PEPTIDE 3333 PG/ML (0-125); BILIRUBIN,DIRECT 0.1 mg/dL (0.0-0.2); BILIRUBIN,TOTAL 0.4 mg/dL (0.2-1.0); TOTAL PROTEIN, SERUM 7.7 g/dL (6.4-8.2)
[2019-05-19 19:37] LABS: BACTERIA,URINE Few /HPF (None Seen); SQUAMOUS EPITHELIAL CELL,UR Few /HPF (None Seen)
--- NOTE | 2019-05-19 19:41 | NUR ---
TURNED IN MOVE SHEET
--- NOTE | 2019-05-19 19:45 | NUR ---
ENDORSED TO MADONNA HENRY FOR ELIZABETH.
--- NOTE | 2019-05-19 20:02 | NUR ---
CALLED FOR MED-SURGE BED
--- NOTE | 2019-05-19 20:17 | NUR ---
MED SURG BED 308-2
[2019-05-19] MEDS ORDERED: HYDROCODONE/APAP 5/325MG 1 EACH TABLET PO PRN (21:00)
[2019-05-19] MEDS ORDERED: MAGNESIUM HYDROXIDE 30 ML UDC PO PRN (21:00)
[2019-05-19] MEDS ORDERED: Z GUARD REMEDY 2 OZ OINT TP PRN (21:00)
[2019-05-19] MEDS ORDERED: TIZANIDINE HCL 4 MG TABLET PO PRN (21:00)
[2019-05-19] MEDS ORDERED: MORPHINE SULFATE INJ 2 MG/ML DISP.SYRIN IV PRN (21:00)
[2019-05-19] MEDS ORDERED: ONDANSETRON HCL/PF 4 MG/2 ML VIAL IVP PRN (21:00)
[2019-05-19] MEDS ORDERED: ALBUTEROL FS 2.5 MG/3 ML VIAL.NEB NEB PRN (21:00)
[2019-05-19] MEDS ORDERED: TEMAZEPAM 15 MG CAPSULE PO PRN (21:00)
[2019-05-19] MEDS ORDERED: ACETAMINOPHEN 325 MG TABLET PO PRN (21:00)
[2019-05-19] MEDS ORDERED: MAG HYDROX/AL HYDROX/SIMETH 30 ML UDC PO PRN (21:00)
[2019-05-19] MEDS ORDERED: BISACODYL (5 MG) 5 MG TABLET.DR PO PRN (21:00)
[2019-05-19] MEDS ORDERED: FUROSEMIDE 20 MG/2 ML VIAL IV SCH (21:00)
[2019-05-19] MEDS ORDERED: NA PHOS,M-B/NA PHOS,DI-BA 1 EA ENEMA RC PRN (21:00)
[2019-05-19 21:20] VITALS: BP 144/59
--- NOTE | 2019-05-19 21:20 | NUR ---
ADMISSION NOTE RECEIVED REPORT FROM LA HENRY. PATIENT WAS BROUGHT TO THE UNIT VIA GURNEY. PATIENT IS A/O X1 TO SELF ONLY BUT ABLE TO FOLLOW SIMPLE COMMANDS. NOTED IV ON LEFT HAND. IV ACCESS OCCLUDED. PATIENT COMPLAINING OF PAIN UPON FLUSHING THE LINE. REMOVED PREVIOUS ACCESS AND WILL START A NEW ONE. SKIN ASSESSMENT PERFORMED. PLEASE SEE SKIN ASSESSMENT LOG. ORIENTED PATIENT TO UNIT POLICY AND HOURLY ROUNDING. THE INVENTORY OF BELONGINGS COMPLETED BY ARTIFICIAL BREEDING TECHNICIAN. PLACED PATIENT ON TELE MONITOR SINUS RHYTHM WITH HR 92. PLACE PT ON OXYGEN 2L/MIN VIA NASAL CANNULA. SAFETY PRECAUTION PROTOCOL INITIATED CALL LIGHT WITHIN REACH. WILL CONTINUE TO MONITOR.
[2019-05-19 21:45] VITALS: BP 144/59
--- NOTE | 2019-05-19 22:50 | NUR ---
RN NOTE LEGAL LIBRARIAN IN THE UNIT INFORMED ABOUT MULTIPLE IV ATTEMPTS. OKAY FOR MIDLINE INSERTION IN AM. RN SARAH PENNINGTON MADE AWARE.
--- NOTE | 2019-05-19 23:07 | NUR ---
RN NOTES: CONTACTED PHARM, INFORMED ABOUT LASIX ORDER, BY 2299, MED NOT YET GIVEN DUE TO PROBLEM WITH PT'S IV ACCESS. MULTIPLE IV ATTEMPTS, EVEN WITH THE HELP OF VEIN FINDER. LFA IV G22 SECURED[address] PL[address] NEW ORDER FOR LASIX 40 MG IV ONE TIME DOSE NOW PER MD ORDER. AWAITING PHARM FOR VERIFICATION
[2019-05-19] MEDS: SENNOSIDES 8.6 MG TABLET PO SCH (23:14)
[2019-05-19 23:23] VITALS: BP 136/68
[2019-05-19] MEDS ORDERED: FUROSEMIDE 40 MG/4 ML VIAL IV ONE (23:30)
[2019-05-20] VITALS (7 sets, daily range): BP systolic 119–159; BP diastolic 64–94
--- NOTE | 2019-05-20 00:19 | NUR ---
RN NOTES: NOTIFIED PHARM DUST CONTROL ENGINEER, REGARDING PT'S RESTORIL. ORDER TO GIVE 7.5 MG CAP FOR PRN SLEEP. MD USE STOCK DOSE OF 15MG FOR RESTORIL ORDER, PROBLEM IS CAPSULE CANNOT BE HALF. PER PHARM TO CHECK IF THERE IS AVAILABLE 7.5 MG OF RESTORIL IN OMNICELL. RESTORIL 7.5 MG CAP AVAILABLE IN MS 3WEST OMNICELL. REORDER MEDICATION USING AVAILABLE DOSAGE, MD AWARE, PHARM NOTIFIED
--- NOTE | 2019-05-20 01:12 | NUR ---
rn notes: pt pulled out iv, multiple attempts of trying to get out of bed, removing tele monitor. notified md director communications, per md, give ativan 0.5 mg IM shot x1 dose now, and place on bilateral soft wrist restraint. order read back, noted, and carried out.
[2019-05-20] MEDS ORDERED: LORAZEPAM INJ 2 MG/ML VIAL IM STA (01:18)
[2019-05-20] MEDS ORDERED: CLONIDINE HCL 0.1 MG TABLET PO PRN (01:30)
--- NOTE | 2019-05-20 01:35 | NUR ---
ATIVAN X1 DOSE: ATIVAN 0.5 MG IM ADMINISTERED AT THIS TIME FOR AGITATION, RESTLESSNESS. WILL CONTINUE MONITORING PT. SINUS RHYTHM HR 92.
--- NOTE | 2019-05-20 01:42 | NUR ---
RN NOTES: PLACED PT ON BILATERAL SOFT WRIST RESTRAINT. RESTRAINT PROTOCOL INITIATED. PT ABLE TO MOVE AND WIGGLE ARMS AND HANDS. GOOD CAPILLARY REFILL NOTED. RADIAL PULSES PALPABLE, INTACT. WILL CONTINUE TO MONITOR
--- NOTE | 2019-05-20 03:32 | NUR ---
RN NOTES: FAMILY WORKER CAME TO DRAW BLOOD, UNABLE TO DRAW, WILL SEND SOMEONE TO TRY DRAWING AM LABS
[2019-05-20 04:28] LABS: BASOPHILS % (AUTO) 0.2 % (0.0-2.0); HEMATOCRIT 29 % (33-45); HEMOGLOBIN 9.6 g/dL (11.5-14.8); LYMPHOCYTES # (AUTO) 0.6 /CMM (0.8-4.8); LYMPHOCYTES % (AUTO) 5.3 % (20.0-44.0); MEAN CORPUSCULAR HGB CONC 34 g/dl (31.0-36.0); MEAN CORPUSCULAR VOLUME 90 fL (82-100); MONOCYTES # (AUTO) 0.6 /CMM (0.1-1.30); NEUTROPHILS # (AUTO) 9.6 /CMM (1.8-8.9); NEUTROPHILS % (AUTO) 88.5 % (43.0-81.0); PLATELET COUNT (AUTO) 170 /CMM (150-450); RED BLOOD CELL COUNT(AUTO) 3.15 MIL/uL (4.0-5.2); WHITE BLOOD COUNT (AUTO) 10.8 K/uL (4.3-11.0)
[2019-05-20 04:50] LABS: ALANINE AMINOTRANSFERASE 12 U/L (12-78); ALBUMIN 3.6 g/dL (3.4-5.0); ALKALINE PHOSPHATASE 82 U/L (46-116); ASPARTATE AMINOTRANSFERASE 15 U/L (15-37); BILIRUBIN,TOTAL 0.4 mg/dL (0.2-1.0); CALCIUM, SERUM 9.4 mg/dL (8.5-10.1); CARBON DIOXIDE 24 mmol/L (21-32); CHLORIDE 101 mmol/L (98-107); CREATININE 2.3 mg/dL (0.6-1.3); GLUCOSE 122 mg/dL (74-106); MAGNESIUM 1.8 mg/dL (1.8-2.4); PHOSPHORUS 4.2 mg/dL (2.5-4.9); POTASSIUM 3.7 mmol/L (3.5-5.1); SODIUM SERUM 140 mmol/L (136-145); TOTAL PROTEIN, SERUM 7.8 g/dL (6.4-8.2); UREA NITROGEN, BLOOD 46 mg/dL (7-18)
[2019-05-20 05:45] LABS: B-TYPE NATRIURETIC PEPTIDE 3675 PG/ML (0-125)
--- NOTE | 2019-05-20 06:47 | NUR ---
RN CLOSING NOTES: PT IN BED, REMAINS A/O X1 TO SELF ONLY, REMAINS ON 2L OXYGEN VIA NC, RESPIRATIONS EVEN AND UNLABORED. PT REMAINS AGITATED, TRYING TO REMOVE RESTRAINTS. IV ACCESS REMAINS PATENT AND FLUSHING WELL, ON HL, COVERED WITH KERLIX AND BROWN SLEEVE. PT HAS BILATERAL SOFT WRIST RESTRAINT IN PLACED, WITH GOOD CAPILLARY REFILL NOTED, RADIAL PULSES PALPABLE AND INTACT, NO S/S OF IMPEDIMENT IN CIRCULATION NOTED. REMAINS SINUS RHYTHM HR 89. FOR CARDIO AND NEPHRO CONSULT TODAY. SAFETY PRECAUTIONS FOR FALL REMAINS ENGAGED, CALL LIGHT IN REACH, WILL ENDORSE TO DAY RN FOR CONTINUITY OF CARE.
--- NOTE | 2019-05-20 07:36 | NUR ---
RM TELE OPENING NOTES Patient received on 2L nasal cannula, no sob noted, no s/s of pain at this time. Patient remains awake and agitated at this time, remains on restraints bilateral soft wrist restraints. LFA gauge 22 covered with brown sleeve at this time. bed at the lowest setting, call light within reach, side rails up x2.
[2019-05-20] MEDS: METOPROLOL TARTRATE 25 MG TABLET PO SCH ×2 (08:47→17:02)
[2019-05-20] MEDS: MULTIVIT W/MINERALS 1 TAB TABLET PO SCH (08:47)
[2019-05-20] MEDS: PANTOPRAZOLE 40 MG TABLET.DR PO SCH (08:47)
[2019-05-20] MEDS: FOLIC ACID 1 MG TABLET PO SCH (08:47)
[2019-05-20] MEDS: LORAZEPAM 1 MG TABLET PO SCH ×2 (08:48→17:00)
[2019-05-20] MEDS: ASPIRIN 325 MG TABLET PO SCH (08:48)
[2019-05-20] MEDS: THIAMINE HCL 100 MG TABLET PO SCH (08:48)
[2019-05-20] MEDS: GABAPENTIN 100 MG CAPSULE PO SCH ×2 (08:48→17:02)
[2019-05-20] MEDS: ZINC SULFATE 220 MG CAPSULE PO SCH (08:48)
[2019-05-20] MEDS: ASCORBIC ACID 500 MG TABLET PO SCH (08:48)
[2019-05-20] MEDS: PROSOURCE / PROSTAT (PYXIS) 30 ML UDC PO SCH (08:56)
[2019-05-20] MEDS ORDERED: HYDROCHLOROTHIAZIDE 25 MG TABLET PO SCH (09:00)
[2019-05-20] MEDS ORDERED: FUROSEMIDE 20 MG TABLET PO SCH (09:00)
--- NOTE | 2019-05-20 14:27 | NUR ---
RN NOTES KRISTAL midline inserted, restraints remain on patient due to aggression.
[2019-05-20] MEDS: CEFTRIAXONE 1 G in IV D5W 50 ML IV SCH (18:02)
--- NOTE | 2019-05-20 18:33 | NUR ---
RN MS CLOSING NOTES Patient remains on 2L nasal cannula, no sob noted, patient's vital signs remain stable, denies pain at this time. Patient lying down comfortably on her bed, easily arousable. Bilateral soft restraints remains on for protection of IV lines at this time, patient gets aggressive when she is awake. Patient remains strict I/O. Continue abx at this time. Bed at the lowest setting, call light within reach, side rails up x3. Will give report to NOC RN for ELIZABETH bedside.
[2019-05-20] MEDS: SENNOSIDES 8.6 MG TABLET PO SCH (21:18)
[2019-05-20] MEDS: TEMAZEPAM 7.5 MG CAPSULE PO PRN (21:19)
--- NOTE | 2019-05-21 06:00 | NUR ---
MS RN NOTES PT PULLED OUT MIDLINE WHILE BILATERAL SOFT WRIST RESTRAINTS OFF. CATHETER TIP INTACT. SUPERVISOR CYTOLOGY NOTIFIED. RN RADIOTELEGRAPH OPERATOR SERVICER NOTIFIED. WILL CONTINUE TO MONITOR.
--- NOTE | 2019-05-21 06:13 | NUR ---
MS RN NOTES AWAKE & RESPONSIVE. NOT IN ANY DISTRESS. NO SOB NOTED. DENIES ANY PAIN OR DISCOMFORT AT THIS TIME. AM CARE DONE. MONITORED ACCORDINGLY. CALL LIGHT WITHIN REACH. BED IN LOWEST POSITION. SR UP X 3 WITH BED ALARM ON FOR SAFETY. WILL ENDORSE TO NEXT SHIFT.
[2019-05-21 07:03] LABS: BASOPHILS % (AUTO) 0.2 % (0.0-2.0); EOSINOPHILS % (AUTO) 7.4 % (0.0-6.0); HEMATOCRIT 30 % (33-45); LYMPHOCYTES # (AUTO) 1.3 /CMM (0.8-4.8); LYMPHOCYTES % (AUTO) 17.7 % (20.0-44.0); MEAN CORPUSCULAR HGB CONC 34 g/dl (31.0-36.0); MEAN CORPUSCULAR VOLUME 93 fL (82-100); MONOCYTES # (AUTO) 0.4 /CMM (0.1-1.30); NEUTROPHILS # (AUTO) 4.9 /CMM (1.8-8.9); NEUTROPHILS % (AUTO) 68.7 % (43.0-81.0); RED BLOOD CELL COUNT(AUTO) 3.21 MIL/uL (4.0-5.2); WHITE BLOOD COUNT (AUTO) 7.1 K/uL (4.3-11.0)
--- NOTE | 2019-05-21 07:15 | NUR ---
MS HENRY NOTES PATIENT IN BED ALERT ORIENTED X 4. NO ACUTE DISTRESS NOTED, BREATHING UNLABORED. SAFETY MEASURES IN PLACE. CALL LIGHT WITHIN REACH. WILL CONTINUE TO MONITOR ACCORDINGLY. Addendum: 05/21/19 at 1946 by DANNY BOYLE RN DISREGARD ABOVE NOTES, WRONG PATIENT
--- NOTE | 2019-05-21 07:15 | NUR ---
MS RN NOTES PATIENT IN BED ALERT ORIENTED X 2. NO ACUTE DISTRESS NOTED, BREATHING UNLABORED. SAFETY MEASURES IN PLACE. CALL LIGHT WITHIN REACH. WILL CONTINUE TO MONITOR ACCORDINGLY.
[2019-05-21 07:29] LABS: ALANINE AMINOTRANSFERASE 7 U/L (12-78); ALBUMIN 3.1 g/dL (3.4-5.0); ALKALINE PHOSPHATASE 75 U/L (46-116); ASPARTATE AMINOTRANSFERASE 28 U/L (15-37); BILIRUBIN,TOTAL 0.3 mg/dL (0.2-1.0); CARBON DIOXIDE 23 mmol/L (21-32); CHLORIDE 102 mmol/L (98-107); CREATININE 2.7 mg/dL (0.6-1.3); GLUCOSE 102 mg/dL (74-106); MAGNESIUM 2.1 mg/dL (1.8-2.4); PHOSPHORUS 5.4 mg/dL (2.5-4.9); POTASSIUM 4.6 mmol/L (3.5-5.1); SODIUM SERUM 138 mmol/L (136-145); TOTAL PROTEIN, SERUM 7.4 g/dL (6.4-8.2); UREA NITROGEN, BLOOD 58 mg/dL (7-18)
[2019-05-21] MEDS: PANTOPRAZOLE 40 MG TABLET.DR PO SCH (07:38)
[2019-05-21 08:00] VITALS: BP 98/52
--- NOTE | 2019-05-21 08:05 | NUR ---
MS RN NOTES RELAYED CRITICAL PLATELETS RESULT TO CON [facility] EDUCATIONAL RECRUITER WITH NEW ORDERS FOR REPEAT CBC AND FOR DIC PANEL. NOTED AND CARRIED OUT.PATIENT IN STABLE CONDITION. NO ACUTE DISTRESS NOTED.
--- NOTE | 2019-05-21 08:25 | NUR ---
MS RN NOTES RECEIVED A CALL FROM LABORATORY MIGUEL ANGEL AGOSTO SAID TO DISREGARD LABORATORY RESULTS FROM THIS MORNING DRAW AT 0640 INCLUDING PLATELETS CRITICAL RESULT BECAUSE OF BLOOD SPECIMEN IS CLOTTED AND THEY WILL COME TO DRAW BLOOD AGAIN TODAY, NOTIFIED STEM ROLLER CON SHEPARD MADE AWARE OF WHAT HAPPENED SAID TO CONTINUE WITH PREVIOUS ORDERS MADE EARLIER FOR CBC AND DIC PANEL TODAY.
[2019-05-21 08:44] LABS: CREATINE KINASE, TOTAL 132 U/L (26-192)
[2019-05-21] MEDS: METOPROLOL TARTRATE 25 MG TABLET PO SCH ×2 (09:00→16:53)
--- NOTE | 2019-05-21 09:00 | NUR ---
MS RN NOTES PATIENT APPEARS CALM AND COMFORTABLE, FOLLOWS SIMPLE INSTRUCTION, RELEASE OF RESTRAINT WILL START CONTRACT FOR SAFETY FOR 30 MINUTES TO AN HOUR, WILL MONITOR PATIENTS BEHAVIOR.
[2019-05-21] MEDS: ASPIRIN 325 MG TABLET PO SCH (09:25)
[2019-05-21] MEDS: THIAMINE HCL 100 MG TABLET PO SCH (09:25)
[2019-05-21] MEDS: MULTIVIT W/MINERALS 1 TAB TABLET PO SCH (09:25)
[2019-05-21] MEDS: ASCORBIC ACID 500 MG TABLET PO SCH (09:26)
[2019-05-21] MEDS: FOLIC ACID 1 MG TABLET PO SCH (09:26)
[2019-05-21] MEDS: GABAPENTIN 100 MG CAPSULE PO SCH ×2 (09:26→16:53)
[2019-05-21] MEDS: ZINC SULFATE 220 MG CAPSULE PO SCH (09:26)
[2019-05-21] MEDS: PROSOURCE / PROSTAT (PYXIS) 30 ML UDC PO SCH (09:27)
--- NOTE | 2019-05-21 09:30 | NUR ---
MS RN NOTES PATIENT APPEARS CALM AND COMFORTABLE, FOLLOWS SIMPLE INSTRUCTION, NOT PULLING OUT ANYTHING, WILL MONITOR PATIENTS BEHAVIOR.
[2019-05-21] MEDS: LORAZEPAM 1 MG TABLET PO SCH ×2 (09:55→16:52)
--- NOTE | 2019-05-21 10:00 | NUR ---
MS RN NOTES PATIENT APPEARS CALM AND COMFORTABLE, FOLLOWS SIMPLE INSTRUCTION, NOT PULLING OUT ANYTHING, WILL MONITOR PATIENTS BEHAVIOR.
--- NOTE | 2019-05-21 10:01 | NUR ---
MS RN NOTES PATIENT APPEARS CALM AND COMFORTABLE, FOLLOWS SIMPLE INSTRUCTION, NOT PULLING OUT ANYTHING, WILL MONITOR PATIENTS BEHAVIOR. RESTRAINT DISCONTINUED PER MD ORDER.
[2019-05-21 10:25] LABS: BASOPHILS % (AUTO) 0.6 % (0.0-2.0); EOSINOPHILS % (AUTO) 7.7 % (0.0-6.0); HEMATOCRIT 28 % (33-45); HEMOGLOBIN 9.3 g/dL (11.5-14.8); LYMPHOCYTES % (AUTO) 12.8 % (20.0-44.0); MEAN CORPUSCULAR HGB CONC 34 g/dl (31.0-36.0); MEAN CORPUSCULAR VOLUME 91 fL (82-100); MONOCYTES # (AUTO) 0.5 /CMM (0.1-1.30); MONOCYTES % (AUTO) 6.4 % (2.0-12.0); NEUTROPHILS # (AUTO) 5.7 /CMM (1.8-8.9); NEUTROPHILS % (AUTO) 72.5 % (43.0-81.0); RED BLOOD CELL COUNT(AUTO) 3.03 MIL/uL (4.0-5.2); WHITE BLOOD COUNT (AUTO) 7.8 K/uL (4.3-11.0)
[2019-05-21 10:49] LABS: PLATELET COUNT (AUTO) 30 /CMM (150-450)
[2019-05-21 12:01] LABS: D-DIMER 0.47 mg/L(FEU (0.17-0.50)
[2019-05-21 13:51] LABS: PLATELET COUNT (AUTO) 170 /CMM (150-450)
[2019-05-21 16:00] VITALS: BP 107/62
[2019-05-21] MEDS: CEFTRIAXONE 1 G in IV D5W 50 ML IV SCH (18:16)
--- NOTE | 2019-05-21 19:00 | NUR ---
MS RN NOTES PATIENT IN BED ALERT ORIENTED X 4. NO ACUTE DISTRESS NOTED, BREATHING UNLABORED. DUE MEDICATIONS GIVEN, NO ASE NOTED. NEEDS ATTENDED AND ANTICIPATED.KEPT CLEAN DRY AND COMFORTABLE. IV ACCESS PATENT AND INTACT, NO REDNESS OR SWELLING NOTED.SAFETY MEASURES IN PLACE. CALL LIGHT WITHIN REACH. WILL ENDORSE TO NIGHT NURSE FOR CONTINUITY OF CARE
--- NOTE | 2019-05-21 19:30 | NUR ---
RECEIVED PATIENT UP IN CHAIR. AO X 2, ABLE TO MAKE NEEDS KNOWN. NO ACUTE DISTRESS NOTED. DENIES ANY PAIN AT THIS TIME. IV SITES PATENT, INTACT; FLUSHED. SAFETY REMINDERS GIVEN. ON LOW BED WITH BILATERAL UPPER SIDE RAILS UP. CALL BARTHOLOMEW WITHIN EASY REACH. WILL CONTINUE TO MONITOR.
[2019-05-21 20:00] VITALS: BP 134/71
[2019-05-21] MEDS: SENNOSIDES 8.6 MG TABLET PO SCH (21:09)
[2019-05-21] MEDS: TEMAZEPAM 7.5 MG CAPSULE PO PRN (21:10)
--- NOTE | 2019-05-22 06:00 | NUR ---
PATIENT ASLEEP, EASILY AROUSABLE. RESPIRATIONS EVEN. NO SIGNS OF PAIN NOTED. DUE MEDS GIVEN WITH NO ASE NOTED. NEEDS ATTENDED. KEPT CLEAN AND DRY. TURNED AND REPOSITIONED Q 2 HOURS. SAFETY PRECAUTIONS AND COMFORT MEASURES IN PLACE. WILL GIVE REPORT TO DAY SHIFT FOR CONTINUITY OF CARE.
[2019-05-22 06:36] LABS: BASOPHILS % (AUTO) 0.6 % (0.0-2.0); EOSINOPHILS % (AUTO) 12.9 % (0.0-6.0); HEMATOCRIT 26 % (33-45); HEMOGLOBIN 8.8 g/dL (11.5-14.8); LYMPHOCYTES # (AUTO) 1.1 /CMM (0.8-4.8); LYMPHOCYTES % (AUTO) 18.9 % (20.0-44.0); MEAN CORPUSCULAR HGB CONC 34 g/dl (31.0-36.0); MEAN CORPUSCULAR VOLUME 91 fL (82-100); MONOCYTES # (AUTO) 0.5 /CMM (0.1-1.30); MONOCYTES % (AUTO) 7.8 % (2.0-12.0); NEUTROPHILS # (AUTO) 3.6 /CMM (1.8-8.9); NEUTROPHILS % (AUTO) 59.8 % (43.0-81.0); PLATELET COUNT (AUTO) 147 /CMM (150-450); RED BLOOD CELL COUNT(AUTO) 2.83 MIL/uL (4.0-5.2); WHITE BLOOD COUNT (AUTO) 5.9 K/uL (4.3-11.0)
[2019-05-22 06:37] LABS: ALANINE AMINOTRANSFERASE 9 U/L (12-78); ALKALINE PHOSPHATASE 67 U/L (46-116); ASPARTATE AMINOTRANSFERASE 15 U/L (15-37); BILIRUBIN,TOTAL 0.1 mg/dL (0.2-1.0); CALCIUM, SERUM 8.8 mg/dL (8.5-10.1); CARBON DIOXIDE 25 mmol/L (21-32); CHLORIDE 104 mmol/L (98-107); CREATININE 2.5 mg/dL (0.6-1.3); GLUCOSE 87 mg/dL (74-106); MAGNESIUM 2.3 mg/dL (1.8-2.4); PHOSPHORUS 5.1 mg/dL (2.5-4.9); SODIUM SERUM 141 mmol/L (136-145); TOTAL PROTEIN, SERUM 6.8 g/dL (6.4-8.2); UREA NITROGEN, BLOOD 60 mg/dL (7-18)
[2019-05-22 07:12] LABS: CREATINE KINASE, TOTAL 79 U/L (26-192)
--- NOTE | 2019-05-22 07:40 | NUR ---
MS RN OPENING NOTES RECEIVED PATIENT IN BED, ASLEEP. SITTER AT BEDSIDE. HOB ELEVATED. NO SOB. ON O2 @ 2L/IM VIA NC [place] WE[place]. ALERT AND ORIENTED X2 WITH CONFUSION OBSERVED. KRISTAL MIDLINE INTACT AND PATENT. DENIES ANY C/O PAIN NOR DISCOMFORT. RESTING COMFORTABLY IN BED. BED IN LOWEST POSITION, LOCKED. CALL LIGHT WITHIN REACH. BED SIDERAILS UP X2.
[2019-05-22] MEDS: PANTOPRAZOLE 40 MG TABLET.DR PO SCH (08:40)
[2019-05-22] MEDS: MULTIVIT W/MINERALS 1 TAB TABLET PO SCH (08:57)
[2019-05-22] MEDS: LORAZEPAM 1 MG TABLET PO SCH ×2 (08:58→17:34)
[2019-05-22] MEDS: THIAMINE HCL 100 MG TABLET PO SCH (08:58)
[2019-05-22] MEDS: FOLIC ACID 1 MG TABLET PO SCH (08:58)
[2019-05-22] MEDS: ZINC SULFATE 220 MG CAPSULE PO SCH (08:58)
[2019-05-22] MEDS: GABAPENTIN 100 MG CAPSULE PO SCH ×2 (08:58→17:34)
[2019-05-22] MEDS: ASPIRIN 325 MG TABLET PO SCH (08:58)
[2019-05-22] MEDS: ASCORBIC ACID 500 MG TABLET PO SCH (08:58)
[2019-05-22] MEDS: METOPROLOL TARTRATE 25 MG TABLET PO SCH ×2 (08:59→17:00)
[2019-05-22] MEDS: PROSOURCE / PROSTAT (PYXIS) 30 ML UDC PO SCH ×2 (08:59→09:00)
--- NOTE | 2019-05-22 09:00 | NUR ---
MS RN NOTES HELD B/P MED, B/P 107/54, HR 68. PATIENT REFUSED PROSTAT DESPITE OF RISK AND BENEFITS EXPLAINED. OFFERED X3 STRONGLY REFUSED.
--- NOTE | 2019-05-22 09:40 | NUR ---
MS RN NOTES PATIENT STARTED CRYING TALKING ABOUT NOT ANSWERING PHONE CALL. PROVIDED COMFORT AND REDIRECTION. PHYSICAL THERAPY CAME AND STARTED THERAPY WITH PATIENT, THEN PATIENT STOPPED CRYING AND INITIATED CONVERSATION WITH PHYSICAL THERAPIST.
[2019-05-22] MEDS: DOCUSATE SODIUM 100 MG CAPSULE PO SCH (17:34)
--- NOTE | 2019-05-22 18:45 | NUR ---
MS RN CLOSING NOTES PATIENT ALERT AND AWAKE, ORIENTED X2. PATIENT WITH CONFUSION AND EPISODES OF CRYING LOOKING FOR HER . 1:1 SITTER AT BEDSIDE. HOB ELEVATED. NO SOB. ON ROOM AIR @ 98%. KRISTAL MIDLINE INTACT AND PATENT, LEFT FA #22 INTACT AND PATENT WITHOUT S/S OF COMPLICATIONS. DENIES ANY C/O PAIN NOR DISCOMFORT. RESTING COMFORTABLY IN BED. IN NO APPARENT DISTRESS. BED IN LOWEST POSITION, LOCKED. CALL LIGHT WITHIN REACH. BED SIDERAILS UP X2.
[2019-05-22] MEDS: CEFTRIAXONE 1 G in IV D5W 50 ML IV SCH (19:44)
[2019-05-22 20:00] VITALS: BP 111/54
--- NOTE | 2019-05-22 20:43 | NUR ---
MS/RN ON INITIAL ROUND AT 1930, PATIENT WAS AWAKE, ALERT, CONFUSED, NO C/O PAIN, NO DISTRESS NOTED, SITTER AT BEDSIDE FOR SAFETY, WILL MONITOR.
[2019-05-22] MEDS: TEMAZEPAM 7.5 MG CAPSULE PO PRN (21:52)
[2019-05-22] MEDS: SENNOSIDES 8.6 MG TABLET PO SCH (21:58)
--- NOTE | 2019-05-22 23:00 | NUR ---
MS/RN PATIENT IS SLEEPING AT THIS TIME, AROUSABLE, APPEAR COMFORTABLE, NO SIGNS OF DISTRESS NOTED, CALL LIGHT IN REACH. WILL MONITOR.
--- NOTE | 2019-05-23 06:57 | NUR ---
MS/RN PATIENT STILL SLEEPING AT THIS TIME, APPEAR COMFORTABLE, BREATHING EVEN AND UNLABORED, CALL LIGHT IN REACH. ALL NEEDS ATTENDED AT THIS TIME, WILL CONTINUE TO MONITOR.
[2019-05-23 07:09] LABS: BASOPHILS % (AUTO) 0.9 % (0.0-2.0); EOSINOPHILS % (AUTO) 11.5 % (0.0-6.0); HEMATOCRIT 25 % (33-45); HEMOGLOBIN 8.6 g/dL (11.5-14.8); LYMPHOCYTES # (AUTO) 1.3 /CMM (0.8-4.8); MEAN CORPUSCULAR HGB CONC 34 g/dl (31.0-36.0); MEAN CORPUSCULAR VOLUME 91 fL (82-100); MONOCYTES # (AUTO) 0.4 /CMM (0.1-1.30); MONOCYTES % (AUTO) 7.2 % (2.0-12.0); NEUTROPHILS # (AUTO) 3.4 /CMM (1.8-8.9); NEUTROPHILS % (AUTO) 58.4 % (43.0-81.0); PLATELET COUNT (AUTO) 188 /CMM (150-450); RED BLOOD CELL COUNT(AUTO) 2.78 MIL/uL (4.0-5.2); WHITE BLOOD COUNT (AUTO) 5.8 K/uL (4.3-11.0)
[2019-05-23 07:19] LABS: CALCIUM, SERUM 8.6 mg/dL (8.5-10.1); CARBON DIOXIDE 25 mmol/L (21-32); CHLORIDE 104 mmol/L (98-107); GLUCOSE 84 mg/dL (74-106); POTASSIUM 4.1 mmol/L (3.5-5.1); SODIUM SERUM 140 mmol/L (136-145); UREA NITROGEN, BLOOD 47 mg/dL (7-18)
--- NOTE | 2019-05-23 07:52 | NUR ---
MS RN OPENING NOTES RECEIVED PATIENT IN BED, AROUSABLE TO VERBAL AND TACTILE STIMULI. PATIENT ORIENTED X2 WITH CONFUSION NOTED. NO SOB. HOB ELEVATED. DENIES ANY C/O PAIN NOR DISCOMFORT AT THIS TIME. KRISTAL MIDLINE AND LEFT FA #22 INTACT AND PATENT. BED IN LOWEST POSITION,. BED SIDERAILS UP X2. 1:1 SITTER AT BEDSIDE. REMAINS STABLE AT THIS TIME.
--- NOTE | 2019-05-23 08:21 | NUR ---
WOUND CARE CONSULT WOUND CARE RECEIVED CONSULT FOR LOW JENSEN SCALE, SACRAL RASH AND PERINEAL EXCORIATION. WOUND CARE WILL DEFER CONUSLT AND TREATMENT PLANS TO PLASTIC SURGICAL TEAM WHO ARE CURRENTLY FOLLOWING THIS PATIENT. PATIENT WITH JENSEN AT 17, ALL PRESSURE ULCER PREVENTION MEASURES ARE NOTED TO BE IN PLACE. WILL SEE PRN.
[2019-05-23] MEDS: PANTOPRAZOLE 40 MG TABLET.DR PO SCH (08:22)
[2019-05-23] MEDS: PROSOURCE / PROSTAT (PYXIS) 30 ML UDC PO SCH (09:00)
[2019-05-23] MEDS: DOCUSATE SODIUM 100 MG CAPSULE PO SCH (09:01)
[2019-05-23] MEDS: GABAPENTIN 100 MG CAPSULE PO SCH (09:01)
[2019-05-23] MEDS: ASPIRIN 325 MG TABLET PO SCH (09:01)
[2019-05-23] MEDS: ASCORBIC ACID 500 MG TABLET PO SCH (09:01)
[2019-05-23] MEDS: FOLIC ACID 1 MG TABLET PO SCH (09:01)
[2019-05-23] MEDS: LORAZEPAM 1 MG TABLET PO SCH (09:01)
[2019-05-23] MEDS: MULTIVIT W/MINERALS 1 TAB TABLET PO SCH (09:01)
[2019-05-23 09:04] VITALS: BP 110/64
[2019-05-23] MEDS: METOPROLOL TARTRATE 25 MG TABLET PO SCH (09:04)
[2019-05-23] MEDS: ZINC SULFATE 220 MG CAPSULE PO SCH (09:04)
[2019-05-23] MEDS: THIAMINE HCL 100 MG TABLET PO SCH (09:05)
[2019-05-23 10:07] LABS: *SPE A/G RATIO 0.9 (0.7-1.7); *SPE ALBUMIN 2.9 g/dL (2.9-4.4); *SPE ALPHA-1-GLOBULIN 0.3 g/dL (0.0-0.4); *SPE ALPHA-2-GLOBULIN 0.9 g/dL (0.4-1.0); *SPE BETA GLOBULIN 0.9 g/dL (0.7-1.3); *SPE GLOBULIN, TOTAL 3.3 g/dL (2.2-3.9); *SPE M-SPIKE Not Observed g/dL (Not Observed); *SPEGAMMA GLOBULIN 1.2 g/dL (0.4-1.8)
[2019-05-23 10:07] LABS: *SPE A/G RATIO 0.9 (0.7-1.7); *SPE ALPHA-1-GLOBULIN 0.4 g/dL (0.0-0.4); *SPE ALPHA-2-GLOBULIN 0.8 g/dL (0.4-1.0); *SPE BETA GLOBULIN 0.9 g/dL (0.7-1.3); *SPE GLOBULIN, TOTAL 3.3 g/dL (2.2-3.9); *SPE M-SPIKE Not Observed g/dL (Not Observed); *SPEGAMMA GLOBULIN 1.1 g/dL (0.4-1.8)
--- NOTE | 2019-05-23 10:25 | NUR ---
MS RN NOTES PATIENT SAT UP IN CHAIR, RESTING COMFORTABLY WRITING ON PAPER WITH SITTER AT SIDE.
[2019-05-23] MEDS ORDERED: DOCU-270 PO (11:55)
[2019-05-23] MEDS ORDERED: CEPH-570 PO (11:55)
[2019-05-23 13:09] LABS: PTH, INTACT 32 pg/mL (15-65)
[2019-05-23 13:09] LABS: PTH, INTACT 45 pg/mL (15-65)
--- NOTE | 2019-05-23 14:00 | NUR ---
MS PIANO MAKER/CLOSING NOTES PATIENT ALERT AND ORIENTED X2 WITH EPISODES OF CONFUSION. COMPLIANT WITH MOST ASPECT OF CARE DURING THE SHIFT. DENIES ANY C/O [place] NOR DISCOMFORT. NO SOB. PATIENT DISCHARGED AND TO RETURN TO [facility]. REPORT GIVEN TO JASPAL VIA PHONE SNF RN ALONG WITH DISCHARGE PACKET AND DISCHARGE INSTRUCTIONS EXPLAINED. REPORT GIVEN TO EMT PERSONNEL AND DISCHARGE PACKET ALONG WITH INSTRUCTIONS AND EDUCATION. DESPITE PATIENT'S COGNITIVE IMPAIRMENT, DISCHARGE INSTRUCTIONS GIVEN AND TEACHINGS DONE. ALL BELONGINGS ACCOUNTED FOR. KRISTAL MIDLINE REMOVED WITH CATHETER TIP INTACT AND LEFT FA IV ACCESS REMOVED WITH CATHETER TIP INTACT WITH GAUZE DRESSING IN PLACE. PATIENT LEFT VIA GURNEY VIA AMBULANCE IN STABLE CONDITION.
== END 2019-05-23 14:05 | DRG 871 ==
LOC: ER 18:47 → MED 20:21 → TELE 05-20 02:47 → MED 05-20 08:49
PROVIDERS: ADMIT Nurse Practitioner Acute Care; ATTEND Nurse Practitioner Acute Care
PROC: 05H933Z Insertion of Infusion Device into Right Brachial Vein, Percutaneous Approach (ICD-10-PCS; principal; 2019-05-20)
DX: A41.9 Sepsis, unspecified organism (principal); G93.41 Metabolic encephalopathy; I21.4 Non-ST elevation (NSTEMI) myocardial infarction; N17.0 Acute kidney failure with tubular necrosis; N39.0 Urinary tract infection, site not specified; I13.0 Hypertensive heart and chronic kidney disease with heart failure and stage 1 through stage 4 chronic kidney disease, or unspecified chronic kidney disease; I25.2 Old myocardial infarction; N18.9 Chronic kidney disease, unspecified; D63.8 Anemia in other chronic diseases classified elsewhere; F41.9 Anxiety disorder, unspecified; Z88.0 Allergy status to penicillin; Z91.012 Allergy to eggs; Z79.82 Long term (current) use of aspirin; Z79.899 Other long term (current) drug therapy; B96.89 Other specified bacterial agents as the cause of diseases classified elsewhere; I25.10 Atherosclerotic heart disease of native coronary artery without angina pectoris; J44.9 Chronic obstructive pulmonary disease, unspecified; K59.00 Constipation, unspecified; M19.90 Unspecified osteoarthritis, unspecified site; K44.9 Diaphragmatic hernia without obstruction or gangrene; J45.909 Unspecified asthma, uncomplicated; G89.4 Chronic pain syndrome; B19.20 Unspecified viral hepatitis C without hepatic coma; Z87.01 Personal history of pneumonia (recurrent); I50.9 Heart failure, unspecified; F09 Unspecified mental disorder due to known physiological condition; D69.6 Thrombocytopenia, unspecified; L98.9 Disorder of the skin and subcutaneous tissue, unspecified
CPT/HCPCS: 36415; 36569; 71045-TC; 74018; 76770-TC; 80048-TC; 80053-TC; 80076-TC; 81000-TC; 82550-TC; 82962-TC; 83605-TC; 83690-TC; 83735-TC; 83880; 83970; 84100-TC; 84155; 84165; 84484-TC; 85025-TC; 85396; 85730-TC; 87040-TC; 87081-TC; 87086-TC; 97110-TC; 97116-TC; 97530-TC; G0378; J0696; J1940; J2060; J7040; J7060